=== PATIENT | female | born 1945 | race Caucasian/White ===

== ENCOUNTER 2018-08-12 09:06 | Outpatient (CLI) | payer MEDICARE ==
[2018-08-12] MEDS ORDERED: Iopamidol 370 76% 100 ML VIAL ONE (10:31)
--- NOTE | 2018-08-12 14:35 | CT ---
ABDOMEN AN DPELVIC CT SCAN WITH IV COTNRAST: HISTORY: A 73-year-old female with a history of diverticulitis of large intestine with perforation and abscess with bleeding, bloody stool for 1 month. FINDINGS: Thee is evidence for cardiomegaly. Old granuloma in the left lower lobe. Somewhat mosaic appearance to the lower visualized lungs. Liver attenuation is heterogeneous. Small hiatal hernia. Status po st cholecystectomy with mild dilatation of the common bile duct, but no intrahepatic ductal dilatatio n. The pancreas appears unremarkable. There is evidence for a fatty mass within the 3rd portion of the duodenum measuring 1.6 x 2.4 x 3.6 cm, evidence for a lipoma. No evidence for proximal obstructi on. No renal calculus or obstruction. There is evidence for diverticulosis with some wall thicke abigail and pericolonic fat stranding in the sigmoid portion of the colon, evidence for acute diverticul itis. There is an approximately 3.3 x 4.4 cm diameter somewhat poorly defined air and fluid collecti on adjacent to the sigmoid colon, evidence for a small abscess or confined perforation. No evidence for free intraperitoneal air. No evidence for pelvic or retroperitoneal adenopathy. Small umbilical fat-containing hernia. IMPRESSION: Evidence for acute diverticulitis involving the sigmoid colon with an approximately 3.3 x 4.4 cm diam eter mixed fluid and air collection immediately adjacent to the sigmoid colon, evidence for a small a bscess or confined leak without free intraperitoneal air. This air and fluid collection would not be amenable to percutaneous drainage. Evidence for a lipoma in the 3rd portion of the duodenum. Small hiatal hernia. Small umbilical fat-containing hernia. Cardiomegaly. Other findings as above. POS: [facility]
== END 2018-08-12 09:07 | disposition home or self-care (01) ==
LOC: CT 09:06
PROVIDERS: ATTEND Internal Medicine Gastroenterology
DX: K57.21 Diverticulitis of large intestine with perforation and abscess with bleeding (principal); K92.1 Melena; I48.91 Unspecified atrial fibrillation; I35.0 Nonrheumatic aortic (valve) stenosis; K44.9 Diaphragmatic hernia without obstruction or gangrene; K42.9 Umbilical hernia without obstruction or gangrene; I51.7 Cardiomegaly; D17.5 Benign lipomatous neoplasm of intra-abdominal organs; K83.8 Other specified diseases of biliary tract; K63.89 Other specified diseases of intestine; Z90.49 Acquired absence of other specified parts of digestive tract
CPT/HCPCS: 74177; 82565

== ENCOUNTER 2018-09-14 07:42 | Outpatient (CLI) | payer MEDICARE ==
[2018-09-14] MEDS ORDERED: Iopamidol 300 61% 100 ML VIAL FS ONE (09:00)
--- NOTE | 2018-09-14 12:43 | CT ---
CT ABDOMEN AND PELVIS WITH CONTRAST: HISTORY: Surgery for bleeding abscess. Diverticulitis of the colon. COMPARISON: 08/12/2018 TECHNIQUE: Multiple contiguous axial images were obtained in a CT of the abdomen and pelvis with contrast, and p .o. contrast was administered. Coronal reformats were performed. FINDINGS: The gallbladder has been removed. The liver, kidneys, adrenal glands, spleen, and pancreas are unrem arkable. There is thickening of the wall of the sigmoid colon. Just above the sigmoid colon, there is a high density region measuring 4.2 x 3.2 cm in size. The previously seen air and low density com ponent within the center of this region is no longer present. This is similar in size compared to th e prior examination. There are scattered diverticula in the colon. The small bowel is normal in sukumar iber. No free air or free fluid is seen in the abdomen or pelvis. The patient is status post hyster ectomy. There is a stable lipoma within the duodenum, at the junction of the second and third portion of the duodenum. There is prominence of the common bile duct, which is likely a reservoir effect from prior cholecystectomy. Degenerative changes are seen in the spine. The abdominal wall soft tissues are unremarkable. There is a calcified granuloma in the left lung base. IMPRESSION: 1. High density lesion adjacent to the sigmoid colon most likely represents a hematoma. Previously, this appeared to represent an abscess. There is persistent thickening of the colon in this location , consistent with persistent colitis/inflammation of the colon. 2. Duodenal lipoma. POS: [facility]
== END 2018-09-14 07:43 | disposition home or self-care (01) ==
LOC: SCSCT 07:42
PROVIDERS: ATTEND Specialist
DX: K57.21 Diverticulitis of large intestine with perforation and abscess with bleeding (principal); K63.9 Disease of intestine, unspecified; D17.5 Benign lipomatous neoplasm of intra-abdominal organs
CPT/HCPCS: 74177; 82565

== ENCOUNTER 2018-09-23 11:15 | Outpatient (CLI) | payer MEDICARE ==
[2018-09-23 13:12] LABS: Anion Gap 11 mmol/L (10-20); BUN (Urea Nitrogen) 10 mg/dL (9.8-20.1); Calc. Creatinine Clearance 0 mL/min (70-130); Calcium 9.2 mg/dL (7.8-10.44); Carbon Dioxide 28 mmol/L (23-31); Chloride 103 mmol/L (98-107); Estimated GFR-MDRD 79; Glucose 83 mg/dL (83-110); Potassium 3.2 mmol/L (3.5-5.1); Sodium 139 mmol/L (136-145)
[2018-09-23 13:31] LABS: #Eosinphils 0.2 thou/uL (0.0-0.7); #Monocytes 0.8 thou/uL (0.11-0.59); #Neutrophils 4.7 thou/uL (1.40-6.50); %Basophils 0.7 % (0.0-1.0); %Eosinophils 3.4 % (0.0-10.0); %Lymphocytes 14.1 % (21.0-51.0); %Monocytes 11.2 % (0.0-10.0); %Neutrophils 70.6 % (42.0-75.0); Anisocytosis SLIGHT = 6-15 cells (100X) (0-5/hpf); Hemoglobin 10.7 g/dL (12.0-16.0); Hypochromia SLIGHT = 6-15 cells (100X) (0-5/hpf); MDiff Complete? YES; Mean Corpuscular HGB CONC 28.6 g/dL (32.0-36.0); Mean Corpuscular Hemoglobin 25.6 pg (27.0-31.0); Mean Corpuscular Volume 89.4 fL (78.0-98.0); Mean Platelet Volume 7.8 fL (7.4-10.4); PLT Morphology Comment Appears Adequate; Platelet Count 264 thou/uL (130-400); RBC Distribution Width 15.4 % (11.5-14.5); Red Blood Cell (RBC) Count 4.17 mill/uL (4.20-5.40); White Blood Cell (WBC) Count 6.7 thou/uL (4.8-10.8)
--- NOTE | 2018-09-23 16:48 | EKG ---
Test Reason : Blood Pressure : / mmHG Vent. Rate : 076 BPM Atrial Rate : 079 BPM P-R Int : 000 ms QRS Dur : 098 ms QT Int : 418 ms P-R-T Axes : 000 033 119 degrees QTc Int : 470 ms Atrial fibrillation Incomplete right bundle branch block Nonspecific ST and T wave abnormality Prolonged QT Abnormal ECG No previous ECGs available Confirmed by DR. Gail MEIER ([id number]) on 09/23/2018 4:48:02 PM Referred By: CHELSEY Confirmed By:DR. Gail MEIER
== END 2018-09-23 11:16 | disposition home or self-care (01) ==
LOC: LABBT 11:15
PROVIDERS: ATTEND Specialist
DX: Z01.818 Encounter for other preprocedural examination (principal); K57.21 Diverticulitis of large intestine with perforation and abscess with bleeding
CPT/HCPCS: 80048; 83036; 85025; 93005; 93010

== ENCOUNTER 2018-09-23 12:00 | Inpatient (IN) | payer MEDICARE ==
[2018-09-23 11:25] VITALS: BMI 33.6
[2018-10-04] MEDS ORDERED: Midazolam HCl 2 mg/2 ml Vial ONE (07:34)
[2018-10-04] MEDS ORDERED: Fentanyl 100 MCG/2 ML VIAL ONE ×2 (07:34→09:47)
[2018-10-04] MEDS ORDERED: Dexamethasone 4 mg/ml Vial ONE (07:34)
[2018-10-04] MEDS ORDERED: Ketorolac Tromethamine 30 MG/ML VIAL ONE (07:45)
[2018-10-04] MEDS ORDERED: Lidocaine 1% w/Epinephrine 1:100K 30 ML VIAL ONE (09:31)
[2018-10-04] MEDS ORDERED: cefOXitin 2 GM in Sodium Chloride 0.9% 100 ML IVPB SCH (09:45)
[2018-10-04] MEDS ORDERED: Ketorolac Tromethamine 30 MG/ML VIAL IVP SCH (09:45)
[2018-10-04] MEDS ORDERED: Lidocaine 2% PF 5 ML VIAL ONE (09:55)
[2018-10-04] MEDS ORDERED: Benzonatate 100 MG CAP PO PRN (09:59)
[2018-10-04] MEDS ORDERED: PROVENTIL INHALER 6.7 G (200 INHALATIONS) INH PRN (09:59)
[2018-10-04] MEDS ORDERED: Promethazine HCl 25 MG/ML VIAL SLOW IVP PRN (11:33)
[2018-10-04] MEDS ORDERED: Promethazine HCl 25 MG/ML VIAL IM PRN ×2 (11:33→14:49)
[2018-10-04] MEDS ORDERED: Ondansetron HCl/PF 4 MG/2 ML Vial IVP PRN (11:33)
[2018-10-04] MEDS ORDERED: cefOXitin 2 GM VIAL ONE (12:29)
[2018-10-04] MEDS ORDERED: Ondansetron PF 4 MG/2 ML Vial ONE (13:24)
[2018-10-04] MEDS ORDERED: Bupivacaine HCl 0.5%/Epinephrine 1:200,000/PF 30 ml Vial ONE (14:16)
[2018-10-04] MEDS ORDERED: Esmolol 100 MG/10 ML VIAL ONE (14:46)
[2018-10-04] MEDS ORDERED: Lidocaine 1% PF 5 ML VIAL ONE (14:46)
[2018-10-04] MEDS ORDERED: Metoprolol Tartrate 5 MG/5 ML VIAL ONE (14:46)
[2018-10-04] MEDS ORDERED: Glycopyrrolate 0.2 MG/ML 5 ML SYRINGE ONE (14:46)
[2018-10-04] MEDS ORDERED: PHENYLEPHRINE-NS 100 MCG/ML 10 ML SYRINGE ONE (14:46)
[2018-10-04] MEDS ORDERED: Ondansetron PF 4 MG/2 ML Vial IVP PRN (14:49)
[2018-10-04] MEDS ORDERED: hydrALAZINE 20 MG/ML VIAL SLOW IVP PRN (14:49)
[2018-10-04] MEDS ORDERED: Morphine 4 MG/ML VIAL SLOW IVP PRN (14:49)
[2018-10-04] MEDS ORDERED: Morphine 2 MG/ML SYRINGE SLOW IVP PRN (14:49)
[2018-10-04] MEDS: D5 1/2 NS w/20 mEq KCL 1,000 ML IV SCH ×2 (15:55→21:07)
[2018-10-04] MEDS: Ketorolac Tromethamine 30 MG/ML VIAL IVP SCH ×2 (15:58→21:07)
[2018-10-04] MEDS: Acetaminophen 1,000 MG in Premix Bag 1 BAG IVPB SCH ×2 (15:58→21:07)
[2018-10-04] MEDS: guaiFENesin ER 600 MG TAB PO SCH (20:03)
[2018-10-04] MEDS: Enoxaparin Sodium 40 MG/0.4 ML SYRINGE SC SCH (20:03)
[2018-10-04] MEDS: Simvastatin 20 MG TAB PO SCH (20:03)
[2018-10-04] MEDS: Famotidine/PF 20 mg/2ml Vial SLOW IVP SCH (20:03)
[2018-10-04] MEDS: Famotidine 20 MG TAB PO SCH (20:18)
[2018-10-05] MEDS: Ketorolac Tromethamine 30 MG/ML VIAL IVP SCH ×4 (03:01→21:26)
[2018-10-05] MEDS: D5 1/2 NS w/20 mEq KCL 1,000 ML IV SCH ×2 (03:01→15:45)
[2018-10-05] MEDS: Acetaminophen 1,000 MG in Premix Bag 1 BAG IVPB SCH ×2 (03:01→09:46)
[2018-10-05 05:51] LABS: #Lymphocytes 0.6 thou/uL (1.20-3.40); #Monocytes 0.8 thou/uL (0.11-0.59); #Neutrophils 7.7 thou/uL (1.40-6.50); %Basophils 0.1 % (0.0-1.0); %Eosinophils 0.1 % (0.0-10.0); %Lymphocytes 6.8 % (21.0-51.0); %Monocytes 8.4 % (0.0-10.0); %Neutrophils 84.7 % (42.0-75.0); Hemoglobin 9.5 g/dL (12.0-16.0); Mean Corpuscular HGB CONC 30.4 g/dL (32.0-36.0); Mean Corpuscular Hemoglobin 27.3 pg (27.0-31.0); Mean Corpuscular Volume 89.8 fL (78.0-98.0); Mean Platelet Volume 7.9 fL (7.4-10.4); Platelet Count 183 thou/uL (130-400); RBC Distribution Width 15.6 % (11.5-14.5); Red Blood Cell (RBC) Count 3.47 mill/uL (4.20-5.40); White Blood Cell (WBC) Count 9.1 thou/uL (4.8-10.8)
[2018-10-05 06:02] LABS: Anion Gap 9 mmol/L (10-20); BUN (Urea Nitrogen) 11 mg/dL (9.8-20.1); Calc. Creatinine Clearance 78 mL/min (70-130); Calcium 8.5 mg/dL (7.8-10.44); Carbon Dioxide 25 mmol/L (23-31); Chloride 105 mmol/L (98-107); Estimated GFR-MDRD 65; Glucose 199 mg/dL (83-110); Potassium 4.5 mmol/L (3.5-5.1); Sodium 134 mmol/L (136-145)
--- NOTE | 2018-10-05 08:56 | PRG ---
DATE OF SERVICE: 10/05/2018 SUBJECTIVE: Ms. Frank is postoperative day #1 from laparoscopic sigmoid colectomy/low anterior rese ction. Her rectal transection was right about the level of the peritoneal lining of the pelvis. I d ecided against a diverting ileostomy. She seems to be doing well today. She denies nausea or vomiti ng. She notes appropriate minimal discomfort, but is taking no narcotic medication. She has been to lerating clear liquids. She has been ambulating. PHYSICAL EXAMINATION: VITAL SIGNS: She is afebrile, pulse is 86, blood pressure 129/75. LUNGS: Clear to auscultation. ABDOMEN: Soft. Incisions are healing nicely with minimal tenderness. She has excellent bowel sound s. : Her urine output with her Mchugh catheter was 490 mL overnight. LABORATORY STUDIES: Her CBC reveals a white blood cell count of 9.1 with hemoglobin of 9.5, hematocr it of 31.2. Her basic metabolic panel is essentially normal with a normal BUN and creatinine. Her g lucose level is a little elevated this morning at 199. ASSESSMENT: The patient is doing very well postoperative day #1 from laparoscopic colon resection. I would plan on continuing clear liquids today and advance to full liquids tomorrow. If she still sh ows evidence of appropriate bowel function then she will probably be stable for discharge tomorrow.
[2018-10-05] MEDS: Montelukast Sodium 10 mg Tablet PO SCH (09:46)
[2018-10-05] MEDS: Valsartan 80 MG TAB PO SCH (09:46)
[2018-10-05] MEDS: Spironolactone 25 MG TAB PO SCH (09:46)
[2018-10-05] MEDS: Famotidine 20 MG TAB PO SCH ×2 (09:46→21:26)
[2018-10-05] MEDS: Levothyroxine 150 MCG TAB PO SCH (09:46)
[2018-10-05] MEDS: Potassium Chloride 10 MEQ TAB PO SCH (09:46)
[2018-10-05] MEDS: Famotidine/PF 20 mg/2ml Vial SLOW IVP SCH ×2 (09:48→21:26)
[2018-10-05] MEDS ORDERED: HYDROcodone/Acetaminophen 7.5/325 mg Tablet PO PRN ×2 (14:00)
[2018-10-05] MEDS: Simvastatin 20 MG TAB PO SCH (21:26)
[2018-10-05] MEDS: guaiFENesin ER 600 MG TAB PO SCH (21:26)
[2018-10-05] MEDS: Enoxaparin Sodium 40 MG/0.4 ML SYRINGE SC SCH (21:43)
--- NOTE | 2018-10-05 23:51 | OP ---
DATE OF PROCEDURE: 10/04/2018 PREOPERATIVE DIAGNOSIS: Sigmoid colon diverticulitis. POSTOPERATIVE DIAGNOSIS: Sigmoid colon diverticulitis with a large inflamed mass of the colon within the pelvis. PROCEDURE PERFORMED: Laparoscopic sigmoid colectomy with complete splenic flexure mobilization. SURGEON: Zuhair Swartz M.D. ANESTHESIA: General endotracheal. INDICATIONS: The patient is a 73-year-old white female. She has been having fairly continuous probl ems with diverticulitis over the course of the past few months. She has experienced significant weig ht loss as a result of this and has been on multiple courses of antibiotics. A CT scan has revealed a mass adjacent to the sigmoid colon was initially felt to be an abscess and subsequently felt to pot entially be a hematoma. This has been stable and resolving. She was taken to the operating room at this time for laparoscopic sigmoid colectomy. DESCRIPTION OF PROCEDURE: Informed consent was obtained. The patient was taken to the operating aleida m where general endotracheal anesthesia was obtained with the patient in supine position. Abdomen wa s prepped with ChloraPrep and draped in sterile fashion. Mchugh catheter was placed and she was place d into dorsal lithotomy position. Of note, a digital rectal exam performed, just after anesthesia wa s initiated revealed what appeared to be a palpable mass within the pelvis. This was surprising give n that she has already had a hysterectomy. Local anesthetic was infiltrated using 0.25% Marcaine with epinephrine. A 5 mm supraumbilical incisi on was created through which a Veress needle was passed into the peritoneal cavity and pneumoperitone um established using carbon dioxide up to a pressure of 15 mmHg. A 5 mm trocar port was passed throu gh this same incision, laparoscopic camera was passed through this port. Under direct vision, a 12 m m port was placed in the right lower quadrant. Attention was turned to the pelvis. It was noted to be a large firm mass within the pelvis. This is suspected to be the involved segment of bowel. A si te was selected in the left lower quadrant for the extraction. An 8 cm oblique incision was created and muscle splitting was used to gain access into the abdominal cavity. The Mariano wound retractor w as placed along with the GelPort. A hand was placed intra-abdominal and hand-assisted laparoscopy s continued. The firm mass within the pelvis was recognized to be the severely diseased and inflamed segment of si gmoid colon. This was fixed on the right lateral, left lateral and anteriorly. I began blunt mobili zation, but found this to be inadequate due to the extent in the firmness of the adhesions. I theref ore continued dissection using the LigaSure. I divided the adhesions to the right lateral abdominal wall and eventually the left lateral pelvic wall. Anteriorly, the adhesions were mobilized and I was able to gain access beyond the palpable matted segment of colon down into the pelvis. There was a s egment of rectum distal to this inflamed segment that was appeared to be palpably normal. I then turned my attention to the left colon. I mobilized the left colon along the white line of Joon dt. This mobilization was carried up and around the splenic flexure to achieve full splenic flexure mobilization. The left colon was mobilized bluntly along the fascia of Toldt to achieve medial mobil ization. There was recognized to be thickening and some foreshortening of the sigmoid colon mesentery. There was extensive lymphadenopathy associated with this. I began my dissection initially at about the sacral promontory. The peritoneum of the mesentery was incised and dissection was carried distally along the right lateral aspect of the colon down into the pelvis. I dissected down to the level of the upper rectum. At this level, I was able to dissect a mesenteric window and divided the colon at this level with a single fire of the blue load of the [place] phil stapler. I then mobilized the mesentery proximally to elevate the inflamed mass out of the pelvi s. I attempted to inspect for the ureter on the left, but the extent of the inflammation prohibited adequate dissection. Instead, I made attempts to avoid lateral dissection instead stayed closer to t he colon during the LigaSure dissection. I mobilized up to the level of the severe severely inflamed colon. I then identified a segment of de scending colon that would reach down into the pelvis at the level of the rectal staple line. This wa s marked with a LigaSure. I then further mobilized the second segment of the sigmoid colon mesentery as this was prohibiting adequate reach down into the pelvis and would create tension on the anastomo sis. I was then able to mobilize the bowel out through the Mariano wound retractor and continued the operat ion extracorporeally. Utilizing segregated instrumentation and toweling this area off, I created an enterotomy and then siz ed the colon with the EEA sizers. I selected the 31 mm EEA stapler and obtained the anvil from this. This was passed through the enterotomy and brought out antimesenteric several centimeters proximall y. I then divided the colon so as to exclude the enterotomy in continuity with the site of the resec xavier segment with a final fire of the blue load of the [place] stapler. The segment of the colon was passed off the field. All segregated instruments were passed off the field as well. The gloves were changed. The anvil wa s prepped with Betadine and a pursestring suture of 2-0 Prolene was placed around the base of the anv il. The sigmoid colon was then dropped back down into the abdominal cavity. The segment of the colo n was outside of the involved inflammatory segment. From below, the EEA sizers were passed up to the rectal staple line uneventfully. The 31 mm EEA stap ler was then advanced up to the staple line and under direct visual and palpable guidance, the spike was brought out just anterior to the mid section of the staple line. This spike was connected to the anvil and the 2 segments of the bowel were approximated and anastomosed by firing the stapler. The doughnuts were inspected and found to be of excellent quality. The anastomosis was inspected to ensu re that it was airtight by insufflating while underwater and there was no evidence of air leak. The entire operative site was thoroughly inspected and was found to be hemostatic. There never been any significant blood loss during any portion of the operation. All irrigant from within the abdomen was aspirated. The fascia at the right lower quadrant port was closed with 0 Vicryl suture using a GraNee needle. A ll ports and instruments removed under direct vision. Pneumoperitoneum was carefully evacuated. The closing set was utilized for closing. Gowns and gloves were changed. All laparoscopic instrumen tation was removed and the abdominal wall was cleansed and re-toweled. The fascia at the left lower quadrant extraction site was closed in two layers with a running suture of #1 PDS. Additional local anesthetic was infiltrated. The wound was irrigated with 2 liters of ir rigant. The remainder of the wound was closed in layers with 3-0 and 4-0 Monocryl. Other laparoscop ic port sites were closed with 4-0 Monocryl. Dermabond was placed externally. There were no complic ations with any portion of the operation. She was taken to recovery room in stable condition.
[2018-10-06] MEDS: Ketorolac Tromethamine 30 MG/ML VIAL IVP SCH ×2 (03:36→09:09)
[2018-10-06] MEDS: D5 1/2 NS w/20 mEq KCL 1,000 ML IV SCH ×3 (03:38→10:13)
[2018-10-06] MEDS: Montelukast Sodium 10 mg Tablet PO SCH (09:08)
[2018-10-06] MEDS: Levothyroxine 150 MCG TAB PO SCH (09:08)
[2018-10-06] MEDS: Famotidine 20 MG TAB PO SCH (09:09)
[2018-10-06] MEDS: Valsartan 80 MG TAB PO SCH (09:09)
[2018-10-06] MEDS: Potassium Chloride 10 MEQ TAB PO SCH (09:09)
[2018-10-06] MEDS: Spironolactone 25 MG TAB PO SCH (09:10)
[2018-10-06] MEDS: Famotidine/PF 20 mg/2ml Vial SLOW IVP SCH (09:10)
--- NOTE | 2018-10-06 11:29 | PRG ---
DATE OF SERVICE: 10/06/2018 SUBJECTIVE: Ms. Frank is doing well today. She tolerated full liquid. She is ambulatory with a wa lking program. OBJECTIVE: VITAL SIGNS: She is afebrile. Vital signs are stable. ABDOMEN: Soft. She has active bowel sounds. The wounds look good. No evidence of infection. ASSESSMENT: Postop day #2, sigmoid colectomy. PLAN: She is doing well. She will probably go home this afternoon. We will see how she does from a n ambulatory standpoint. Prescription written for tramadol.
[2018-10-06 12:35] VITALS: BP 116/78; TEMP 97.4
== END 2018-10-06 12:58 | disposition home or self-care (01) | DRG 331 ==
LOC: SURG A 10-04 07:18
PROVIDERS: ADMIT Specialist; ATTEND Specialist
PROC: 0DTN4ZZ Resection of Sigmoid Colon, Percutaneous Endoscopic Approach (ICD-10-PCS; principal; 2018-10-04)
DX: K57.21 Diverticulitis of large intestine with perforation and abscess with bleeding (principal); R19.00 Intra-abdominal and pelvic swelling, mass and lump, unspecified site; M10.9 Gout, unspecified; I11.9 Hypertensive heart disease without heart failure
CPT/HCPCS: 36415; 36416; 80048; 85025; 86850; 86900; 86901; J0131; J0670; J0694; J1100; J1642; J1650; J1885; J2001; J2250; J2405; J3010; J7050; S0028

== ENCOUNTER 2019-01-24 10:33 | Day surgery (SDC) | payer MEDICARE ==
[2019-01-23 12:26] VITALS: BMI 32.5
[2019-01-24] MEDS ORDERED: Ketamine 50 MG/ML (10ML VIAL) ONE (12:30)
[2019-01-24] MEDS ORDERED: Ondansetron HCl/PF 4 MG/2 ML Vial IVP PRN (12:58)
[2019-01-24] MEDS ORDERED: Promethazine HCl 25 MG/ML VIAL SLOW IVP PRN (12:58)
[2019-01-24] MEDS ORDERED: Promethazine HCl 25 MG/ML VIAL IM PRN (12:58)
--- NOTE | 2019-01-24 13:30 | OP ---
DATE OF PROCEDURE: 01/24/2019 PREOPERATIVE DIAGNOSIS: Diverticulitis with abscess. DESCRIPTION OF PROCEDURE: After informed consent was obtained, the patient was placed in a left lateral decubitus position. Anesthesia was administered per the Anesthesia Department. Forward-viewing endoscope was inserted into the rectum after perianal inspection and rectal exam were normal this passed to the cecum with ease. The cecum, ileocecal valve, and appendiceal orifice were normal. The prep was excellent. The ascending, transverse, descending, sigmoid, and rectum were normal except for diffuse diverticulosis coli. An end-to-side anastomosis was noted in the sigmoid colon with a healthy appearance. Retroflexion in the rectum was normal. ASSESSMENT: 1. End-to-side colonic anastomosis, healthy in appearance. 2. Diffuse diverticulosis coli. 3. Otherwise, normal colonoscopy. RECOMMENDATIONS: 1. Daily fiber supplementation. 2. No need for repeat colonoscopy in the future. Job ID: [id number]
[2019-01-24] MEDS ORDERED: PROPOFOL 200 MG/20 ML VIAL ONE (13:48)
== END 2019-01-24 14:20 | disposition home or self-care (01) ==
LOC: SDC 10:33
PROVIDERS: ATTEND Internal Medicine Gastroenterology
PROC: 0DJD8ZZ Inspection of Lower Intestinal Tract, Via Natural or Artificial Opening Endoscopic (ICD-10-PCS; principal; 2019-01-24)
DX: K57.30 Diverticulosis of large intestine without perforation or abscess without bleeding (principal); K63.0 Abscess of intestine; I35.0 Nonrheumatic aortic (valve) stenosis; I48.91 Unspecified atrial fibrillation; I10 Essential (primary) hypertension; D64.9 Anemia, unspecified; J45.909 Unspecified asthma, uncomplicated; K21.9 Gastro-esophageal reflux disease without esophagitis; E78.00 Pure hypercholesterolemia, unspecified; G47.30 Sleep apnea, unspecified; Z86.010 Personal history of colon polyps; Z90.710 Acquired absence of both cervix and uterus; Z88.5 Allergy status to narcotic agent; Z79.01 Long term (current) use of anticoagulants; Z79.51 Long term (current) use of inhaled steroids; Z79.899 Other long term (current) drug therapy; Z98.890 Other specified postprocedural states
CPT/HCPCS: J2704

== ENCOUNTER 2019-10-26 11:03 | Outpatient (CLI) | payer MEDICARE ==
--- NOTE | 2019-10-26 11:25 | RAD ---
XR Chest Pa Lat STANDARD HISTORY: Cough, atrial fibrillation. Unspecified systolic heart failure COMPARISON: None FINDINGS: There are changes of median sternotomy and valvular replacement. The heart size is mildly e nlarged. The aorta is tortuous. There is mild prominence of the pulmonary vascularity. The lungs are well expanded without lobar consolidation, pneumothoraces or pleural effusions. There are mild de generative changes in the spine.
== END 2019-10-26 11:04 | disposition home or self-care (01) ==
LOC: BICRAD 11:03
PROVIDERS: ATTEND Internal Medicine Gastroenterology
DX: I50.20 Unspecified systolic (congestive) heart failure (principal); R19.7 Diarrhea, unspecified; R00.0 Tachycardia, unspecified; R05 Cough; L89.321 Pressure ulcer of left buttock, stage 1; I48.91 Unspecified atrial fibrillation; Z79.01 Long term (current) use of anticoagulants
CPT/HCPCS: 71046

== ENCOUNTER 2019-10-26 13:26 | Inpatient (IN) | payer MEDICARE ==
[~2019-10-26 13:26] MED LIST: Iopamidol-370 76% 500 ML 1 ML ONE; Mometasone/Formoterol 120 PUFF INHALER INH PRN
[2019-10-26 14:22] LABS: #Basophils 0.2 thou/uL (0.0-0.2); #Eosinphils 0.1 thou/uL (0.0-0.7); #Lymphocytes 2.1 thou/uL (1.20-3.40); #Monocytes 0.8 thou/uL (0.11-0.59); #Neutrophils 6.8 thou/uL (1.40-6.50); %Basophils 2.2 % (0.0-1.0); %Eosinophils 0.7 % (0.0-10.0); %Lymphocytes 20.7 % (21.0-51.0); %Monocytes 8.1 % (0.0-10.0); %Neutrophils 68.4 % (42.0-75.0); Hemoglobin 5.9 g/dL (12.0-16.0); Mean Corpuscular HGB CONC 33.4 g/dL (32.0-36.0); Mean Corpuscular Hemoglobin 33.5 pg (27.0-31.0); Mean Platelet Volume 7.3 fL (7.4-10.4); Platelet Count 210 thou/uL (130-400); RBC Distribution Width 14.3 % (11.5-14.5); Red Blood Cell (RBC) Count 1.77 mill/uL (4.20-5.40)
[2019-10-26 14:50] LABS: ALT (SGPT) 11 U/L (8-55); AST (SGOT) 34 U/L (5-34); Albumin 2.9 g/dL (3.4-4.8); Alkaline Phosphatase 105 U/L (40-110); Anion Gap 14 mmol/L (10-20); BUN (Urea Nitrogen) 43 mg/dL (9.8-20.1); Bilirubin, Total 1.4 mg/dL (0.2-1.2); Calc. Creatinine Clearance 0 mL/min (70-130); Calcium 8.6 mg/dL (7.8-10.44); Carbon Dioxide 22 mmol/L (23-31); Chloride 103 mmol/L (98-107); Estimated GFR-MDRD 53; Globulin 1.9 g/dL (2.4-3.5); Glucose 129 mg/dL (83-110); Lipase 66 U/L (8-78); Potassium 3.8 mmol/L (3.5-5.1); Protein, Total 4.8 g/dL (6.0-8.3); Sodium 135 mmol/L (136-145)
[2019-10-26] MEDS ORDERED: cefTRIAXone\\ROCEPHIN 1 GM VIAL ONE (16:00)
[2019-10-26] MEDS ORDERED: Pantoprazole 40 MG VIAL ONE (16:02)
--- NOTE | 2019-10-26 16:49 | CT ---
CT abdomen and pelvis with IV contrast HISTORY: Abdominal pain. Anemia. GI bleed. COMPARISON: 09/14/2018. FINDINGS: Mild atelectasis at the lung bases. Gallbladder is surgically absent. Associated distention of the biliary system. Solid organs are intact. Nonobstructing lipoma within the second portion the duodenum is unchanged in appearance. Calcification throughout the arterial structures. Prominent degenerative changes lower lumbar spine. Postoperative changes of the sigmoid colon and upper rectum are now evident where a long segment of i nflammation was present on the previous study. No extraluminal gas or free fluid are apparent. No residual inflammation. IMPRESSION: Postoperative changes of the rectosigmoid colon without evidence of complication or recur rent inflammation. Mild atelectasis at the lung bases. Chronic-type findings are stable.
--- NOTE | 2019-10-26 18:48 | RAD ---
EXAM: XR Chest 1 View Portable PROVIDED CLINICAL HISTORY: Anemia COMPARISON: None FINDINGS: Cardiac silhouette appears enlarged. Median sternotomy changes are seen. 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 No focal consolidation, pleural fluid or pneumothorax apparent. Left subclavian central line noted with terminal aspects overlying the expected location of cavoatrial junction. IMPRESSION: Cardiomegaly without evidence for an acute cardiopulmonary process.
--- NOTE | 2019-10-26 19:13 | PDOC.FPRHP ---
- History of Present Illness Chief Complaint: blood per rectum, fatigue History of Present Illness: Patient is a 74F with PMHx of HTN, hypothyroidism, HLD, asthma, and afib on warfarin that presents with blood per rectum and fatigue. Per patient, she started to feel fatigued on Wednesday and shaky today. She was seen at Dr. Mccabe's office today and her hgb was found to be 6.3, so she was sent to the hospital for a blood transfusion. Per patient she started to notice "muddly-like loose stools" Cha night and yesterday morning. She denies bright red blood per rectum. Denies NSAID use, reports she only uses tylenol because she's on warfarin. Denies cp, sob, or abdominal pain at this time. Per patient she last had rectal bleeding september 2018, and at that time she was found to have diverticulitis and an abscess that resulted in partial colon resection. Inside Finisher: Dr. Patel GI: Dr. Mccabe ED Course: 1g rocephin, 80mg protonix, 2u pRBC - Allergies/Adverse Reactions Allergies Allergy/AdvReac Type Severity Reaction Status Date / Time meperidine [From Demerol] Allergy Mild Emesis Verified 01/23/19 12:26 amoxicillin [From Augmentin] Allergy Verified 10/26/19 21:57 clavulanic acid Allergy Verified 10/26/19 21:57 [From Augmentin] - Home Medications Medication Instructions Recorded Confirmed Type Acetaminophen [Tylenol Extra 1 tab PO PRN PRN 09/23/18 10/26/19 History Strength] Albuterol Sulfate [Proair HFA] 1 puff PO PRN PRN 09/23/18 10/26/19 History Lactobacillus Acidophilus 1 capsule PO HS 09/23/18 10/26/19 History [Probiotic] Levothyroxine Sodium [Synthroid] 150 mcg PO DAILY 09/23/18 10/26/19 History Meclizine HCl [Antivert] 25 mg PO PRN PRN 09/23/18 10/26/19 History Metoprolol Succinate [Toprol Xl] 75 mg PO DAILY 09/23/18 10/26/19 History Montelukast Sodium [Singulair] 10 mg PO DAILY 09/23/18 10/26/19 History Potassium Chloride 10 meq PO DAILY 09/23/18 10/26/19 History Simvastatin [Zocor] 10 mg PO HS 09/23/18 10/26/19 History guaiFENesin ER [Mucinex] 600 mg PO HS 09/23/18 10/26/19 History Fluticasone Propionate [Flonase 2 inh EA NARE DAILY 10/05/18 10/26/19 History Allergy Relief] Furosemide 60 mg PO DAILY 10/05/18 10/26/19 History Losartan Potassium 50 mg PO DAILY 10/05/18 10/26/19 History Warfarin Sodium 5.5 mg PO DAILY 01/23/19 10/26/19 History Benzonatate [Tessalon] 100 mg PO TID PRN 10/26/19 10/26/19 History Cholecalciferol (Vitamin D3) 1,000 unit PO DAILY 10/26/19 10/26/19 History [Vitamin D3] Ferrous Sulfate 325 mg PO DAILY 10/26/19 10/26/19 History Fish Oil 1,000 mg PO DAILY 10/26/19 10/26/19 History Fluticasone/Vilanterol [Breo 1 each IH PRN PRN 10/26/19 10/26/19 History Ellipta 200-25 Mcg INH] Loratadine [Claritin] 10 mg PO DAILY 10/26/19 10/26/19 History Ranitidine HCl 150 mg PO BID 10/26/19 10/26/19 History - History PMHx:HTN, hypothyroidism, HLD, asthma, and afib on warfarin PSHx: hysterectomy, thyroidectomy, cholecystectomy, partial colon resection s/p diverticulitis, tonsillectomy, adenoidectomy, open heart surgery 2008 for mitral valve repair FHx: no family hx of colon cancer Social: non-smoker, no etoh use, no drug use - Review of Systems General: denies: fever/chills, weight/appetite/sleep changes Eyes: denies: eye pain, vision changes ENT: denies: nasal congestion, rhinorrhea Respiratory: denies: cough, congestion, shortness of breath Cardiovascular: denies: chest pain, palpitation, edema Gastrointestinal: reports: diarrhea, GI bleeding. denies: nausea, vomiting Genitourinary: denies: polyuria, discharge Skin: denies: jaundice, itching Musculoskeletal: denies: pain, stiffness Neurological: reports: weakness. denies: syncope, seizure Psychological: denies: anxiety, depression - Vital signs BP: [86/59] HR: [97] RR: [22] Tmax: [98.4F] Pox: [98]% on [RA] Wt: [73.7kg] - Physical Exam Constitutional: NAD, awake, alert and oriented, well developed HEENT: EOMI, MMM Neck: supple, FROM Chest: no-tender to palpation, no lesions Heart: other (afib, systolic murmur) Lungs: CTAB, no respiratory distress Abdomen: soft, non-tender, bowel sounds present Musculoskeletal: normal structure, ROM grossly normal Neurological: no focal deficit, normal sensation Skin: good turgor, other (appears jaundiced) Heme/Lymphatic: other (some purpura upper extremities) Psychiatric: normal mood and affect, good judgment and insight FMR H&P: Results - Labs Result Diagrams: 10/26/19 23:59 10/26/19 14:10 Lab results: WBC 10.0 thou/uL (4.8-10.8) 10/26/19 14:10 Hgb 5.9 g/dL (12.0-16.0) L* 10/26/19 14:10 Hct 17.7 % (36.0-47.0) L 10/26/19 14:10 MCV 100.0 fL (78.0-98.0) H 10/26/19 14:10 Plt Count 210 thou/uL (130-400) 10/26/19 14:10 Neutrophils % 68.4 % (42.0-75.0) 10/26/19 14:10 Sodium 135 mmol/L (136-145) L 10/26/19 14:10 Potassium 3.8 mmol/L (3.5-5.1) 10/26/19 14:10 Chloride 103 mmol/L (98-107) 10/26/19 14:10 Carbon Dioxide 22 mmol/L (23-31) L 10/26/19 14:10 BUN 43 mg/dL (9.8-20.1) H 10/26/19 14:10 Creatinine 1.01 mg/dL (0.6-1.1) 10/26/19 14:10 Glucose 129 mg/dL (83-110) H 10/26/19 14:10 Calcium 8.6 mg/dL (7.8-10.44) 10/26/19 14:10 Total Bilirubin 1.4 mg/dL (0.2-1.2) H 10/26/19 14:10 AST 34 U/L (5-34) 10/26/19 14:10 ALT 11 U/L (8-55) 10/26/19 14:10 Alkaline Phosphatase 105 U/L (40-110) 10/26/19 14:10 Serum Total Protein 4.8 g/dL (6.0-8.3) L 10/26/19 14:10 Albumin 2.9 g/dL (3.4-4.8) L 10/26/19 14:10 Lipase 66 U/L (8-78) 10/26/19 14:10 - EKG Interpretation EKG: afib - Radiology Interpretation CT scan - abdomen Status: report reviewed by me (Post-op rectosigmoid conol, mild atelectasis lung bases) FMR H&P: A/P - Problem List (1) HTN (hypertension) Current Visit: Yes Status: Chronic Code(s): I10 - ESSENTIAL (PRIMARY) HYPERTENSION (2) Hypothyroidism Current Visit: Yes Status: Chronic Code(s): E03.9 - HYPOTHYROIDISM, UNSPECIFIED (3) HLD (hyperlipidemia) Current Visit: Yes Status: Chronic Code(s): E78.5 - HYPERLIPIDEMIA, UNSPECIFIED (4) Asthma Current Visit: Yes Status: Chronic Code(s): J45.909 - UNSPECIFIED ASTHMA, UNCOMPLICATED (5) Afib Current Visit: Yes Status: Chronic Code(s): I48.91 - UNSPECIFIED ATRIAL FIBRILLATION (6) GI bleed Current Visit: Yes Status: Acute Code(s): K92.2 - GASTROINTESTINAL HEMORRHAGE, UNSPECIFIED (7) Acute blood loss anemia Current Visit: Yes Status: Acute Code(s): D62 - ACUTE POSTHEMORRHAGIC ANEMIA - Plan Patient is a 74F with a PMHx of HTN, hypothyroidism, HLD, asthma, and afib on warfarin admitted for GI bleed. #Acute blood loss anemia -upper vs lower GI bleed -melena per rectum for last few days, last melanotic stool earlier this am with no bleeding since -fatigue over last week, jaundiced on appearance -hgb 5.9 in ED, transfused 2 pRBC -will recheck hgb 4-hours post-transfusion to assess for need of more blood products -patient had L subclavian central line placed in ED for possible use of pressors -BP stable in 80s-90s/50s, will continue to monitor and consider starting pressures to achieve MAP of 65 -GI consult in am unless patient's status declines and emergent scope needed -empiric rocephin initiated in ED, continue -hold patient's home warfarin -hold patient's home BP meds -ICU admission for frequent monitoring #HTN -hold home BP meds for now #Hypothyroidism -continue home meds #HLD -hold home meds #Asthma -continue home meds #Afib -current in afib, will hold patient's warfarin for now due to GI bleed DVT ppx: SCDs due to bleeding risk Diet: NPO for anticipated scope in am Dispo: ICU admission for frequent monitoring of vitals for GI bleed; continued monitoring of hemoglobin and delivery of blood products as needed Code: Full PCP: CC: Lionel FMR H&P: Upper Level - Plan Date/Time: 10/26/191911 I, Cisco Young MD, have evaluated this patient and agree with findings/ plan as outlined by logistics intern resident. Pertinent changes/additions are listed here. 1. Acute blood loss anemia - Upper GI vs Lower GI bleed - Consult GI - NPO for preparation of endoscopy tomorrow - s/p 2u pRBC in ED - Recheck Hgb tonight - Empiric Rocephin initiated 2. Hypotension - Likely secondary to above - s/p central line 10/26 in ED - Consider vasopressor support if needed All other chronic conditions reviewed and medication to be restarted as appropriate. PCP: _ CODE STATUS: FULL CODE Disposition: Guarded, will admit to ICU for further evaluation and treatment. Patient was seen and evaluated with Dr. Miguel Angel Murcia who is in agreement with plan. Addendum - Attending - Attending Attestation Date/Time: 10/27/19311 I personally evaluated the patient and discussed the management with the team on day of admission. I agree with the History, Examination, Assessment and Plan documented above with any addition or exceptions noted below. GI bleed - resuscitate, recheck h/h and transfuse as necessary. Vit K, no sign of persistent bleeding.
[2019-10-26 19:33] LABS: INR-International Normal Ratio 2.7; PTT 36.8 SEC (22.9-36.1); Prothrombin Time 28.4 SEC (12.0-14.7)
[2019-10-26 19:50] LABS: Iron 39 ug/dL (50-170); Iron Binding Capacity, Total 238 mcg/dL (265-497)
[2019-10-26] MEDS ORDERED: Acetaminophen 325 MG TAB PO PRN (21:23)
[2019-10-26] MEDS ORDERED: Sodium Chloride 0.9% 1,000 ML IV SCH (21:23)
[2019-10-26] MEDS ORDERED: Ondansetron PF 4 MG/2 ML Vial IVP PRN (21:23)
[2019-10-26] MEDS ORDERED: Ondansetron ODT 4 MG TAB SL PRN (21:23)
[2019-10-26] MEDS ORDERED: CCU Electrolyte Replacement 1 EACH IVPB SCH (21:34)
[2019-10-26] MEDS ORDERED: Potassium Chloride 40 MEQ in Premix Bag 1 BAG IVPB PRN (21:40)
[2019-10-26] MEDS ORDERED: Potassium Phosphate 9 MMOL in Sodium Chloride 0.9% 100 ML IVPB PRN (21:40)
[2019-10-26] MEDS ORDERED: CCU ELECTROLYTE REPLACEMENT PROTOCOL FS PRN (21:40)
[2019-10-26] MEDS ORDERED: Magnesium 2 GM/50 ML 2 GM in Premix Bag 1 BAG IVPB PRN (21:40)
[2019-10-26] MEDS ORDERED: Magnesium Oxide 400 MG TAB PO PRN ×2 (21:40)
[2019-10-26] MEDS ORDERED: Potassium Chloride 20 MEQ TAB PO PRN (21:40)
[2019-10-26] MEDS ORDERED: Potassium Chloride 40 MEQ in Sodium Chloride 0.9% 250 ML 250 ML IVPB PRN (21:40)
[2019-10-26] MEDS ORDERED: Potassium Phosphate 15 MMOL in Sodium Chloride 0.9% 250 ML 250 ML IV PRN (21:40)
[2019-10-26] MEDS ORDERED: PHOS-NAK 1 PKT PACK PO PRN ×2 (21:40)
[2019-10-26] MEDS ORDERED: Potassium Phosphate 12 MMOL in Sodium Chloride 0.9% 250 ML 250 ML IV PRN (21:40)
[2019-10-26] MEDS: Sodium Chloride 0.9% 1,000 ML IV SCH (21:49)
[2019-10-26 22:24] VITALS: BMI 29.7
[2019-10-26] MEDS ORDERED: Norepinephrine 8 MG/0.9% NS 250 ML IVPB SCH (23:39)
[2019-10-26] MEDS ORDERED: Acetaminophen 500 MG TAB PO PRN (23:42)
[2019-10-26] MEDS ORDERED: PROVENTIL INHALER 6.7 G (200 INHALATIONS) INH PRN (23:42)
[2019-10-26] MEDS ORDERED: Phytonadione 10 MG in Sodium Chloride 0.9% 50 ML IVPB SCH (23:45)
[2019-10-27 00:10] LABS: Hemoglobin 7.1 g/dL (12.0-16.0); Mean Corpuscular HGB CONC 33.8 g/dL (32.0-36.0); Mean Corpuscular Hemoglobin 31.4 pg (27.0-31.0); Mean Platelet Volume 7.5 fL (7.4-10.4); Platelet Count 174 thou/uL (130-400); RBC Distribution Width 18.2 % (11.5-14.5); Red Blood Cell (RBC) Count 2.27 mill/uL (4.20-5.40); White Blood Cell (WBC) Count 8.3 thou/uL (4.8-10.8)
[2019-10-27 05:12] LABS: Band 1 % (5-11); Eosinophils 2 % (0-10); Hemoglobin 8.1 g/dL (12.0-16.0); Lymphocytes 17 % (21-51); MDiff Complete? YES; Mean Corpuscular HGB CONC 33.9 g/dL (32.0-36.0); Mean Corpuscular Hemoglobin 30.8 pg (27.0-31.0); Mean Corpuscular Volume 90.9 fL (78.0-98.0); Monocytes 8 % (0-10); Neutrophil 72 % (42-75); Platelet Count 186 thou/uL (130-400); Platelet Morphology Comment Appears Adequate; RBC Distribution Width 17.2 % (11.5-14.5); Red Blood Cell (RBC) Count 2.62 mill/uL (4.20-5.40); White Blood Cell (WBC) Count 8.9 thou/uL (4.8-10.8)
[2019-10-27 05:36] LABS: Anion Gap 9 mmol/L (10-20); BUN (Urea Nitrogen) 32 mg/dL (9.8-20.1); Calc. Creatinine Clearance 63 mL/min (70-130); Calcium 8.4 mg/dL (7.8-10.44); Carbon Dioxide 26 mmol/L (23-31); Chloride 106 mmol/L (98-107); Estimated GFR-MDRD 62; Glucose 106 mg/dL (83-110); Potassium 3.4 mmol/L (3.5-5.1); Sodium 138 mmol/L (136-145)
[2019-10-27] MEDS: Levothyroxine 150 MCG TAB PO SCH (05:58)
--- NOTE | 2019-10-27 06:52 | PDOC.FM ---
- Subjective Subjective: Overnight was able to wean off levophed however MAP 62 this morning. She appears to be volume depleted despite some b/l LE edema. Reports diarrhea is improving and her last BM was last night. Fatigue and weakness have improved with pRBCs. Denies abdominal pain, chest pain, shortness of breath. Shigella toxin positive could explain the blood in her stool. - Objective MAR Reviewed: Yes Vital Signs & Weight: Vital Signs (12 hours) Temp Pulse Resp BP Pulse Ox 10/27/19 04:00 98.2 F 10/27/19 03:19 98.2 F 108 H 23 H 97/55 L 94 L 10/27/19 01:00 98.3 F 10/27/19 00:58 98.3 F 92 20 91/55 L 100 10/27/19 00:42 98.2 F 96 23 H 93/58 L 95 10/27/19 00:00 98.2 F 10/26/19 21:15 98.3 F 100 Weight Weight 73.7 kg Most Recent Monitor Data Heart Rate from ECG 91 NIBP 92/54 NIBP BP-Mean 66 Respiration from ECG 20 SpO2 98 I&O: 10/25/19 10/26/19 10/27/19 06:59 06:59 06:59 Intake Total 1088.1 Output Total 750 Balance 338.1 Result Diagrams: 10/27/19 07:54 10/27/19 04:45 Phys Exam - Physical Examination Constitutional: NAD HEENT: moist MMs Neck: supple Respiratory: no wheezing, clear to auscultation bilateral Cardiovascular: RRR holosystolic murmur Gastrointestinal: soft, non-tender, positive bowel sounds Musculoskeletal: edema present Neurological: moves all 4 limbs Psychiatric: normal affect, A&O x 3 Skin: normal turgor Dx/Plan - Plan Plan: Patient is a 74F with a PMHx of HTN, hypothyroidism, HLD, asthma, and afib on warfarin admitted for GI bleed. Acute blood loss anemia - s/p 3U pRBCs, Hgb now 8.1 - Currently on Levophed for BP support - Currently NPO. GI consulted - Hold patient's home warfarin, received Vit K overnight. - Holding home BP meds E coli Shiga toxin diarrhea - Likely cause of blood in stool - Positive on stool culture - Will d/c Ceftriaxone and treat symptoms including giving IVF HTN - Holding home meds for hypotension Hypothyroidism - Continue home meds HLD - Hold home meds Asthma - Continue home meds Afib - In afib, holding warfarin due to GI bleed - INR this AM 1.7 DVT ppx: SCDs Code Status: Full PCP: CC: Lionel Addendum - Attending - Attending Attestation Date/Time: 10/27/19 1113 I personally evaluated the patient and discussed the management with Dr. Ochoa. I agree with the History, Examination, Assessment and Plan documented above with any addition or exceptions noted below. Patient here with acute GI bleed and symptomatic anemia. She has now tested positive for Shiga toxin producing E. coli. However, she has no evidence of colits on CT or on exam. We have held further antibiotics in the situation of this infection as antibiotics are contraindicated in this position. She was initially receiving them due to GI bleed in setting of concern for cirrhosis. However, there is no evidence to support liver disease as an ongoing process. She has improved MAPs with serial fluid boluses and is currently off Levophed. Continue to monitor. Continue to trend H/H. Repeat coags this morning, s/p vitamin K so anticipate a labile INR over the coming days. Awaiting GI consult as they sent her over from clinic.
[2019-10-27 08:02] LABS: Hemoglobin 7.9 g/dL (12.0-16.0)
[2019-10-27 08:12] LABS: INR-International Normal Ratio 1.7; PTT 33.1 SEC (22.9-36.1); Prothrombin Time 20.1 SEC (12.0-14.7)
[2019-10-27] MEDS: Sodium Chloride 0.9% 1,000 ML IV SCH (08:33)
[2019-10-27] MEDS: Pantoprazole 40 MG VIAL IVP SCH ×2 (08:35→20:59)
[2019-10-27] MEDS: Montelukast Sodium 10 mg Tablet PO SCH (08:35)
[2019-10-27] MEDS: Ferrous Sulfate 325 MG TAB PO SCH (08:35)
--- NOTE | 2019-10-27 11:09 | CON ---
DATE OF CONSULTATION: HISTORY OF PRESENT ILLNESS: Kenzie Frank is a pleasant 74-year-old female from [place], [place] who said she was recently hospitalized in [facility], was diagnosed flu, respiratory failure CHF. Now, she developed lower GI bleed. She was here recently in October 2018 when she underwent a sigmoid colectomy for diverticular disease. She apparently has done well. She is complicated by C difficile colitis on two different occasions. This morning, she has been off the Levophed, blood pressure stabilized. PAST MEDICAL HISTORY: Apparently, asthma, CHF, high cholesterol, hypertension, hypothyroidism, diverticular disease. PAST SURGICAL HISTORY: Cholecystectomy, sigmoid colectomy, tonsil, adenoid, hysterectomy, multiple endoscopies. HOME MEDICATIONS: Includes 1. Guaifenesin 600. 2. Coumadin5_. 3. Zocor 10. 4. Ranitidine 150. 5. Potassium. 6. Singulair 10. 7. Toprol-XL 75. 8. Meclizine p.r.n. 9. Losartan 50. 10. Claritin. 11. Synthroid 150. 12. Lasix 60. 13. Breo 225 once a day. She has a nebulizer machine. She has a CPAP machine, albuterol inhaler. ALLERGIES: DEMEROL, AUGMENTIN. SOCIAL HISTORY: No alcohol and tobacco abuse. REVIEW OF SYSTEMS: Ten-point negative. PHYSICAL EXAMINATION: GENERAL: She is in no distress. VITAL SIGNS: Blood pressure 110/80, saturations 98% on room air, respiratory rate 18, pulse 80. CHEST: No wheezing, crackles. CARDIAC: Normal S1, S2, no gallops. ABDOMEN: No masses. LABORATORY DATA: H and H are 7 and 23, platelet count 186. INR was 2.7, is 1.7 now. Electrolytes are normal. Chest x-ray did not show any acute infiltrates. She had a CT abdomen done, which showed no acute findings. IMPRESSION: No gastrointestinal bleed. History of diverticular disease, history of atrial fibrillation, history of asthma, history of sleep apnea, history of hypothyroidism. Pulmonary sims, she appears to be relatively stable. I agree with Florinda. Supportive care, PT. Await input from GI. She had a stool culture positive for Shiga, unclear what this is, though at this stage are not treated. Primary will follow in the ICU. Consultation note, 70 minutes, 50% direct patient care. Job ID: [id number] MTDD
[2019-10-27] MEDS ORDERED: cefTRIAXone\\ROCEPHIN 1 GM in Sodium Chloride 0.9% 100 ML IVPB SCH (16:00)
[2019-10-27] MEDS: Diabetic Tussin 200 MG/10 ML UDCUP PO PRN (20:59)
[2019-10-27] MEDS: Sodium Chloride 0.9% (PF) 10 ML VIAL FS PRN (20:59)
--- NOTE | 2019-10-27 21:12 | CON ---
DATE OF CONSULTATION: 10/27/2019 REQUESTING PHYSICIAN: Dr. Ray. REASON FOR CONSULTATION: Melena and anemia. HISTORY OF PRESENT ILLNESS: Kenzie Anaya is a very pleasant 74-year-old woman, who was previously seen by my GI colleague, Dr. Javier Greene. Back in October 2018, she had complicated sigmoid diverticular disease and ended up undergoing sigmoid colectomy. She had a followup colonoscopy in January 2019 showing only diverticulosis with a normal healthy-appearing sigmoid anastomosis and otherwise normal examination. Later this year, she had a couple of episodes of C difficile colitis, which were treated with vancomycin, with complete symptom resolution after the second course. More recently, she was hospitalized elsewhere with upper respiratory symptoms, treated for pneumonia and the flu with antibiotics. She states she was doing well for several days, but about 4 days ago, she started having a change in bowel habits with her stools becoming quite dark brown or even black appearing and more frequent. This happened for 3 days in a row, and she started feeling progressively weak and fatigued. She presented to our clinic and was seen by our physician assistants yesterday, had labs drawn and was found to have significant new anemia with hemoglobin of 6.2. Previous hemoglobin had been 13 as recently as April. She was advised to present to the emergency department, which she did and was subsequently admitted. Admission hemoglobin here was 5.9. Note, she had an elevated BUN to creatinine ratio of 43 to 1.01. She also had some hypotension throughout the night and was briefly on pressors. She received 3 units RBC transfusion and today hemoglobin is up from 5.9 to 7.9, BUN is declined to 32. She is hemodynamically stable today. She had one further bowel movement, which was dark appearing earlier today with just a bit of bright red on the toilet paper. Through all of this, she has not had any abdominal pain or nausea or vomiting. She is feeling much better after blood transfusion. She cannot recall ever having undergone upper endoscopy. She has no known history of peptic ulcer disease. Stool studies are negative for C difficile, but are positive for E coli producing Shiga toxin. REVIEW OF SYSTEMS: Full review of systems including constitutional, head, eyes, ears, nose, throat, GI, , cardiovascular, respiratory, musculoskeletal, neurologic systems is negative except as noted in the HPI. PAST MEDICAL HISTORY: Complicated diverticular disease status post sigmoid resection in October 2018; hypertension; hypothyroidism; hyperlipidemia; asthma; atrial fibrillation, on warfarin; hysterectomy; thyroidectomy; cholecystectomy; tonsillectomy; mitral valve repair in 2008. FAMILY HISTORY: Negative for colon cancer. SOCIAL HISTORY: No smoking, alcohol or drug use. ALLERGIES: DEMEROL, AMOXICILLIN, AND AUGMENTIN. HOME MEDICATIONS: 1. Tylenol p.r.n. 2. Albuterol p.r.n. 3. Probiotic. 4. Levothyroxine. 5. Meclizine. 6. Metoprolol. 7. Singulair. 8. Potassium chloride. 9. Zocor. 10. Mucinex. 11. Flonase. 12. Furosemide 60 mg daily. 13. Losartan. 14. Warfarin daily. 15. Tessalon Perles p.r.n. 16. Vitamin D3 1000 units daily. 17. Ferrous sulfate 325 mg daily. 18. Fish oil. 19. Breo Ellipta. 20. Claritin. 21. Ranitidine 150 mg p.o. b.i.d. INPATIENT MEDICATIONS: 1. Ferrous sulfate 325 mg daily. 2. Synthroid. 3. Dulera inhaler. 4. Singulair. 5. Protonix 40 mg IV q.12 hours. 6. Potassium chloride. PHYSICAL EXAMINATION: VITAL SIGNS: Temperature 98.3, pulse 88, blood pressure 102/65, and 99% oxygen saturation on room air. GENERAL: Pale 74-year-old woman, sitting up in bed comfortably, in no distress. SKIN: She is pale. No jaundice. No rashes are palpable. EYES: No scleral icterus. Extraocular movements intact. ENT: Mucous membranes moist. No oral lesions. LYMPH: No submandibular or supraclavicular lymphadenopathy. THYROID: Nontender to palpation. HEART: Regular rate and rhythm. LUNGS: Clear to auscultation bilaterally. ABDOMEN: Bowel sounds are present. Soft. Nontender to deep palpation throughout the abdomen. No guarding or rebound tenderness. EXTREMITIES: No peripheral edema. VESSELS: Radial pulses 2+ bilaterally. NEUROLOGIC: Cranial nerves 2 through 12 intact bilaterally. No focal deficits. LABORATORY STUDIES: Admission hemoglobin was 5.9, came up to 7.9 with 3 units RBC transfusion yesterday; hematocrit is 23.3; WBC 8.9; platelets 186; MCV on admission was 100.0. INR on admission was 2.7, now down to 1.7. Sodium 138, potassium 3.4, BUN 32, creatinine 0.89, and glucose 106. Ferritin 60.6, iron 39, and TIBC 238. Total bilirubin 1.4, alkaline phosphatase 105, AST 34, and ALT 11. Troponin 0.026. Albumin 2.9. Lipase 66. ASSESSMENT/PLAN: 1. Acute blood loss anemia. 2. Melena. 3. Shiga toxin producing Escherichia coli infection, per positive stool studies on admission. The patient's symptomatic presentation seems more consistent with upper rather than lower gastrointestinal source, despite the positive stool studies for E coli and her recent treatments for C difficile and complicated diverticulitis. She has elevated BUN to creatinine ratio, no other colitic symptoms such as diarrhea or abdominal pain. So, I would favor more of the possibility of upper GI bleeding. Continue the Protonix q.12 hours as you are doing, continue to trend H and H, and offer supportive care. We will plan for diagnostic upper endoscopy tomorrow. Given that she had satisfactory colonoscopy just this past January and the positive stool for E coli, we will not plan on performing any colonoscopy. Thank you for the consultation. Please call back anytime with questions or concerns. Job ID: [id number]
[2019-10-28] MEDS: Sodium Chloride 0.9% 1,000 ML IV SCH (00:20)
[2019-10-28 05:25] LABS: Anion Gap 13 mmol/L (10-20); BUN (Urea Nitrogen) 16 mg/dL (9.8-20.1); Calc. Creatinine Clearance 76 mL/min (70-130); Calcium 8.3 mg/dL (7.8-10.44); Carbon Dioxide 19 mmol/L (23-31); Chloride 110 mmol/L (98-107); Estimated GFR-MDRD 78; Glucose 97 mg/dL (83-110); Potassium 3.5 mmol/L (3.5-5.1); Sodium 138 mmol/L (136-145)
[2019-10-28] MEDS: Levothyroxine 150 MCG TAB PO SCH (05:27)
--- NOTE | 2019-10-28 05:36 | PDOC.FM ---
- Subjective Subjective: Ms. Frank is resting comfortably this morning. She does complain of several episodes of tachycardia overnight. On review of the tele monitor she was in RVR to the 150s a couple of times, this was noted to be with exertion such as getting up to the restroom. - Objective MAR Reviewed: Yes Vital Signs & Weight: Vital Signs (12 hours) Temp Pulse Resp BP Pulse Ox 10/28/19 03:26 98.3 F 106 H 16 103/59 L 94 L 10/27/19 22:33 98.3 F 100 18 112/57 L 98 10/27/19 19:00 98.2 F 100 Weight Weight 73.7 kg Most Recent Monitor Data Heart Rate from ECG 99 NIBP 103/74 NIBP BP-Mean 83 Respiration from ECG 21 SpO2 98 I&O: 10/26/19 10/27/19 10/28/19 06:59 06:59 06:59 Intake Total 1088.1 3254 Output Total 750 1600 Balance 338.1 1654 Result Diagrams: 10/28/19 03:58 10/28/19 03:58 Phys Exam - Physical Examination Constitutional: NAD HEENT: PERRLA, moist MMs Neck: supple, full ROM Respiratory: no wheezing, no rales, no rhonchi, clear to auscultation bilateral Cardiovascular: no rub Tachycardic, irregular rhythm, systolic murmur Gastrointestinal: soft, non-tender, no distention, positive bowel sounds Musculoskeletal: no edema, pulses present Neurological: non-focal, normal sensation, moves all 4 limbs Psychiatric: normal affect, A&O x 3 Skin: no rash, normal turgor Dx/Plan (1) Acute blood loss anemia Code(s): D62 - ACUTE POSTHEMORRHAGIC ANEMIA Status: Acute (2) GI bleed Code(s): K92.2 - GASTROINTESTINAL HEMORRHAGE, UNSPECIFIED Status: Acute (3) Afib Code(s): I48.91 - UNSPECIFIED ATRIAL FIBRILLATION Status: Chronic (4) Asthma Code(s): J45.909 - UNSPECIFIED ASTHMA, UNCOMPLICATED Status: Chronic (5) HLD (hyperlipidemia) Code(s): E78.5 - HYPERLIPIDEMIA, UNSPECIFIED Status: Chronic (6) HTN (hypertension) Code(s): I10 - ESSENTIAL (PRIMARY) HYPERTENSION Status: Chronic (7) Hypothyroidism Code(s): E03.9 - HYPOTHYROIDISM, UNSPECIFIED Status: Chronic - Plan Plan: Patient is a 74F with a PMHx of HTN, hypothyroidism, HLD, asthma, and afib on warfarin admitted for GI bleed. Acute blood loss anemia - s/p 3U pRBCs, Hgb now 8.2 - Weaned of Levophed, pressures have remained stable. - Currently NPO. GI consulted, plan for EGD this morning. - Hold patient's home warfarin, received Vit K overnight. - Holding home BP meds E coli Shiga toxin diarrhea - GI feels that this is an upper GI bleed, despite shiga toxin positive. - Will d/c Ceftriaxone and treat symptoms including giving IVF HTN - Holding home meds for hypotension Hypothyroidism - Continue home meds HLD - Hold home meds Asthma - Continue home meds Afib - In afib, holding warfarin due to GI bleed - INR this AM 1.7 DVT ppx: SCDs Code Status: Full PCP: CC: Lionel
[2019-10-28 05:40] LABS: Band 1 % (5-11); Elliptocytes SLIGHT = 2-5 cells (100X) (0-1/hpf); Eosinophils 2 % (0-10); Hemoglobin 8.2 g/dL (12.0-16.0); Hypochromia SLIGHT = 6-15 cells (100X) (0-5/hpf); Lymphocytes 18 % (21-51); MDiff Complete? YES; Mean Corpuscular HGB CONC 33.8 g/dL (32.0-36.0); Mean Corpuscular Hemoglobin 31.3 pg (27.0-31.0); Mean Corpuscular Volume 92.5 fL (78.0-98.0); Mean Platelet Volume 7.7 fL (7.4-10.4); Monocytes 13 % (0-10); Myelocyte 1 % (0-0); Neutrophil 64 % (42-75); Platelet Count 170 thou/uL (130-400); Platelet Morphology Comment Appears Adequate; RBC Distribution Width 18.1 % (11.5-14.5); Reactive Lymphocytes 1 % (0-10); Red Blood Cell (RBC) Count 2.61 mill/uL (4.20-5.40); Target Cells SLIGHT = 2-5 cells (100X) (0-1/hpf)
[2019-10-28] MEDS: Ferrous Sulfate 325 MG TAB PO SCH (08:05)
[2019-10-28] MEDS: Montelukast Sodium 10 mg Tablet PO SCH (08:05)
[2019-10-28] MEDS: Pantoprazole 40 MG VIAL IVP SCH ×2 (08:06→21:21)
[2019-10-28] MEDS: Sodium Chloride 0.9% (PF) 10 ML VIAL FS PRN (08:06)
[2019-10-28] MEDS ORDERED: Lidocaine 2% Jelly 5 ML TUBE ONE (08:59)
[2019-10-28] MEDS ORDERED: Furosemide 40 MG/4 ML VIAL ONE (10:05)
[2019-10-28] MEDS ORDERED: Furosemide 40 MG/4 ML VIAL SLOW IVP SCH (10:15)
--- NOTE | 2019-10-28 10:19 | PRG ---
DATE OF SERVICE: 10/28/2019 SUBJECTIVE: Ms. Frank came down for planned EGD this morning, but our anesthesia provider canceled the case, due to concerns about respiratory status and acute CHF. The patient is tachypneic and mildly hypoxic, does have some bibasilar crackles. This is a newer development overnight. From a GI standpoint, the patient denies any abdominal pain or nausea. She reports having had one further small bowel movement, which was dark. Hemoglobin is stable and BUN has declined. OBJECTIVE: VITAL SIGNS: Temperature 98.3, pulse 106, blood pressure 103/59, and 94% oxygen saturation on room air. GENERAL: Sitting up in stretcher, mildly tachypneic, on facemask oxygen. HEART: Regular. Tachycardia. Systolic murmur appreciated. LUNGS: Bibasilar crackles. Mild tachypnea. ABDOMEN: Soft, nontender to palpation throughout. EXTREMITIES: No peripheral edema. LABORATORY STUDIES: WBC 9.0, hemoglobin 8.2, platelets 170. Sodium 138, potassium 3.5, BUN is down to 16, creatinine 0.73. ASSESSMENT AND PLAN: 1. Melena, appears to be resolving. 2. Acute blood loss anemia, stable this morning after initial RBC transfusion. 3. Escherichia coli with Shiga toxin. From a GI standpoint, the patient is stable. Hemoglobin is stabilized and with declining BUN, I think any active GI hemorrhage is probably stopped. Esophagogastroduodenoscopy would still be worthwhile for diagnostic purposes, but I would defer to our anesthesia provider on the need for cardiorespiratory optimization. I have spoken with Dr. Gan regarding this. From my standpoint, the patient could have a diet today, but have n.p.o. after midnight for potential esophagogastroduodenoscopy tomorrow. We would continue the IV PPI in the meantime. Job ID: [id number]
[2019-10-28] MEDS ORDERED: Potassium Chloride 20 MEQ TAB PO SCH ×2 (10:30→12:00)
--- NOTE | 2019-10-28 12:45 | PRG ---
DATE OF SERVICE: 10/28/2019 SUBJECTIVE: This morning she is still short of breath. OBJECTIVE: VITAL SIGNS: Temperature 97, pulse 104, respiratory rate 18, saturations are 98% on 2 L, blood pressure 124/97. GENERAL: No chest pain. CHEST: Decreased breath sounds. Minimal wheezing. CARDIAC: Sinus tach. ABDOMEN: Soft. LABORATORY DATA: White count 9000. ASSESSMENT: Asthma, sleep apnea, gastrointestinal bleed. PLAN: 1. Continue present supportive care. I suggest getting scheduled neb treatments, Dulera schedule because of her breathing. 2. We will follow. Job ID: [id number]
[2019-10-28 16:31] LABS: Anion Gap 12 mmol/L (10-20); BUN (Urea Nitrogen) 14 mg/dL (9.8-20.1); Calc. Creatinine Clearance 72 mL/min (70-130); Calcium 8.2 mg/dL (7.8-10.44); Carbon Dioxide 18 mmol/L (23-31); Chloride 108 mmol/L (98-107); Estimated GFR-MDRD 73; Glucose 115 mg/dL (83-110); Potassium 4.2 mmol/L (3.5-5.1); Sodium 134 mmol/L (136-145)
--- NOTE | 2019-10-28 17:27 | CON ---
DATE OF CONSULTATION: HISTORY OF PRESENT ILLNESS: The patient is a 74-year-old woman with a history of mitral valve repair and aortic stenosis, who presented with a GI hemorrhage. In 2008, the patient underwent mitral valve repair. She also underwent a Maze procedure. The patient has chronic permanent atrial fibrillation and is on chronic anticoagulation therapy. The patient was in her usual state of health when she noted to have dark stool. She was admitted to the hospital and developed dyspnea this morning prior to undergoing an endoscopy. The patient denied having any chest discomfort. PAST MEDICAL HISTORY: 1. Status post mitral valve repair. 2. Aortic stenosis. 3. Permanent atrial fibrillation. 4. Hypertension. 5. Diverticulosis. 6. Asthma. PAST SURGICAL HISTORY: Hysterectomy, tonsillectomy, cholecystectomy, and thyroid surgery. SOCIAL HISTORY: Nonsmoker. FAMILY HISTORY: Positive family history of heart disease. ALLERGIES: SHE IS ALLERGIC TO DEMEROL AND AUGMENTIN. REVIEW OF SYSTEMS: Ten-point system otherwise unremarkable. PHYSICAL EXAMINATION: GENERAL: This is a pale woman, in no acute distress. VITAL SIGNS: Blood pressure 124/97. NECK: Showed no jugular venous distention. LUNGS: Have few crackles in both bases. HEART: Irregular rate and rhythm. Normal S1 and S2. 2/6 systolic murmur. ABDOMEN: Nondistended. EXTREMITIES: Show no edema. LABORATORY RESULTS: Her sodium was 134, potassium 4.2, chloride 108, bicarb 18, BUN 14, and creatinine 0.7. INR of 1.7. White blood cell count 9.0, hemoglobin 8.2, hematocrit 24.2, and platelets are 170. Her EKG revealed atrial fibrillation with ST-T wave abnormality suggestive of ischemia. IMPRESSION: 1. Gastrointestinal hemorrhage. 2. Permanent atrial fibrillation. 3. Severe aortic stenosis. 4. Mitral regurgitation. PLAN: This patient has underwent possible endoscopy. She went into pulmonary edema. The patient has severe aortic stenosis. I recommend holding off doing an endoscopy unless the patient developed recurrent bleeding. We will follow this patient with you through her hospitalization. Job ID: [id number]
--- NOTE | 2019-10-28 17:33 | RAD ---
Chest AP view INDICATION: CHF COMPARISON: October 26, 2019 FINDINGS: Lungs:Worsening perihilar edema Cardiac silhouette:Stable cardia megaly Pulmonary vasculature:Worsening pulmonary vascular congestion Pleural spaces:Tiny bilateral pleural effusions Upper abdomen:No abnormality seen. Osseous structures: No acute osseous abnormality. Additional findings:Stable left subclavian central venous catheter. Stable valvular replacement and m idline sternotomy wires. IMPRESSION: Worsening CHF
[2019-10-28] MEDS: Mometasone/Formoterol 120 PUFF INHALER INH SCH (18:22)
[2019-10-28] MEDS ORDERED: Famotidine 20 MG TAB PO SCH (21:00)
[2019-10-28] MEDS: Lactinex Tablet PO SCH (21:21)
[2019-10-28] MEDS: Simvastatin 5 MG TAB PO SCH (21:21)
[2019-10-28] MEDS: Diabetic Tussin 200 MG/10 ML UDCUP PO PRN (21:23)
[2019-10-29 05:09] LABS: Anion Gap 11 mmol/L (10-20); BUN (Urea Nitrogen) 13 mg/dL (9.8-20.1); Calc. Creatinine Clearance 74 mL/min (70-130); Calcium 8.3 mg/dL (7.8-10.44); Carbon Dioxide 22 mmol/L (23-31); Chloride 107 mmol/L (98-107); Estimated GFR-MDRD 75; Glucose 88 mg/dL (83-110); Potassium 4.1 mmol/L (3.5-5.1); Sodium 136 mmol/L (136-145)
[2019-10-29 05:12] LABS: Band 3 % (5-11); Eosinophils 1 % (0-10); Hemoglobin 8.2 g/dL (12.0-16.0); Lymphocytes 16 % (21-51); MDiff Complete? YES; Mean Corpuscular HGB CONC 33.4 g/dL (32.0-36.0); Mean Corpuscular Hemoglobin 31.2 pg (27.0-31.0); Mean Corpuscular Volume 93.5 fL (78.0-98.0); Mean Platelet Volume 7.6 fL (7.4-10.4); Monocytes 9 % (0-10); Neutrophil 71 % (42-75); Platelet Count 186 thou/uL (130-400); Platelet Morphology Comment Appears Adequate; RBC Distribution Width 18.4 % (11.5-14.5); RBC Morphology Normal; Red Blood Cell (RBC) Count 2.62 mill/uL (4.20-5.40); White Blood Cell (WBC) Count 9.9 thou/uL (4.8-10.8)
--- NOTE | 2019-10-29 05:36 | PDOC.FM ---
- Subjective Subjective: Ms. Frank is doing well this morning, she is breathing much better than she was yesterday. - Objective MAR Reviewed: Yes Vital Signs & Weight: Vital Signs (12 hours) Temp Pulse Resp BP Pulse Ox 10/29/19 04:00 97.9 F 104 H 20 105/60 92 L 10/29/19 02:24 99 20 97 10/28/19 22:26 91 16 96 10/28/19 19:27 98.5 F 90 20 116/58 L 98 10/28/19 18:20 97 20 97 Weight Weight 73.7 kg Most Recent Monitor Data Heart Rate from ECG 99 NIBP 103/74 NIBP BP-Mean 83 Respiration from ECG 21 SpO2 98 I&O: 10/27/19 10/28/19 10/29/19 06:59 06:59 06:59 Intake Total 1088.1 3254 400 Output Total 750 1600 800 Balance 338.1 1654 -400 Result Diagrams: 10/29/19 04:16 10/29/19 04:16 Phys Exam - Physical Examination Constitutional: NAD HEENT: PERRLA, moist MMs Neck: no JVD, supple Respiratory: no wheezing, no rhonchi, clear to auscultation bilateral Fine crackles at the bases bilaterally Cardiovascular: RRR, no rub Aortic stenosis murmur Gastrointestinal: soft, non-tender Musculoskeletal: no edema, pulses present Neurological: non-focal, normal sensation Psychiatric: normal affect, A&O x 3 Skin: no rash, normal turgor Dx/Plan (1) Acute blood loss anemia Code(s): D62 - ACUTE POSTHEMORRHAGIC ANEMIA Status: Acute (2) GI bleed Code(s): K92.2 - GASTROINTESTINAL HEMORRHAGE, UNSPECIFIED Status: Acute (3) Afib Code(s): I48.91 - UNSPECIFIED ATRIAL FIBRILLATION Status: Chronic (4) Asthma Code(s): J45.909 - UNSPECIFIED ASTHMA, UNCOMPLICATED Status: Chronic (5) HLD (hyperlipidemia) Code(s): E78.5 - HYPERLIPIDEMIA, UNSPECIFIED Status: Chronic (6) HTN (hypertension) Code(s): I10 - ESSENTIAL (PRIMARY) HYPERTENSION Status: Chronic (7) Hypothyroidism Code(s): E03.9 - HYPOTHYROIDISM, UNSPECIFIED Status: Chronic - Plan Plan: CHF exacerbation - patient has known history of HF, unknown type, and severe aortic stenosis and mitral valve replacement. - ECHO pending - cardiology consulted. - restarted home lasix, will monitor I/O Acute blood loss anemia - s/p 3U pRBCs, Hgb now 8.2 - Has not had melena since night before last, bleed has likely stabilized. - Cardiology consulted and recommends no endoscopy unless bleeding recurs, GI agrees. - Will await Card/GI recs for restarting anticoagulation E coli Shiga toxin diarrhea - GI feels that this is an upper GI bleed, despite shiga toxin positive. HTN - Holding home meds for hypotension Hypothyroidism - Continue home meds HLD - Hold home meds Asthma - Continue home meds Afib - In afib, holding warfarin due to GI bleed DVT ppx: SCDs Code Status: Full Dispo: Guarded, inpatient, will need to restart anticoagulation and monitor prior to d/c. PCP: CC: Lionel
[2019-10-29] MEDS: Levothyroxine 150 MCG TAB PO SCH (06:07)
[2019-10-29] MEDS: Mometasone/Formoterol 120 PUFF INHALER INH SCH ×2 (06:37→18:30)
[2019-10-29] MEDS ORDERED: Furosemide 20 MG/2 ML VIAL SLOW IVP SCH ×2 (08:00→08:21)
--- NOTE | 2019-10-29 10:05 | PRG ---
DATE OF SERVICE: 10/29/2019 SUBJECTIVE: Ms. Frank is feeling pretty well. Her last bowel movement was over 24 hours ago, was muddy black in color. She has not had any further bowel movements over the past day. There is no abdominal pain. No vomiting. She is tolerating her low-sodium diet. She says her breathing is a lot easier. Hemoglobin is stable this morning. PHYSICAL EXAMINATION: VITAL SIGNS: Temperature 97.9, pulse 113, blood pressure 108/63, 93% oxygen saturation on room air. GENERAL: No acute distress, sitting up in bed comfortably. HEART: Irregular tachycardia, loud systolic murmur. LUNGS: Bibasilar crackles. No wheezing. No respiratory distress. ABDOMEN: Soft, nontender to palpation throughout. EXTREMITIES: No peripheral edema. LABORATORY STUDIES: Hemoglobin stable at 8.2, WBC 9.9, platelets 186. Sodium 136, potassium 4.1, BUN down to 13, creatinine 0.75. ASSESSMENT AND PLAN: 1. Melena, resolved. 2. Acute blood loss anemia, stable for the past 2 days now after initial RBC transfusion. Her acute bleeding presentation still seems more consistent with upper gastrointestinal source. However, it appears that whatever this has now resolved. Dr. Sheehan has recommended that we will not pursue any endoscopy, due to her tenuous cardiorespiratory status, unless the patient were to have significant bleeding again. I would agree with this. In that case, I would recommend treating empirically for suspected peptic ulcer disease. Continue PPI every 12 hours IV while inpatient, and on discharge, transition to twice daily dosing for at least the next 2 months. I would defer to cardiology recommendations on restarting anticoagulation. 3. Escherichia coli with shiga toxin. I think this either was not a true pathogen in her case, or else has run its course. She is not having any abdominal pain or diarrhea. Job ID: [id number]
[2019-10-29] MEDS: Potassium Chloride 10 MEQ TAB PO SCH (10:21)
[2019-10-29] MEDS: Montelukast Sodium 10 mg Tablet PO SCH (10:21)
[2019-10-29] MEDS: Ferrous Sulfate 325 MG TAB PO SCH (10:21)
[2019-10-29] MEDS: Furosemide 20 MG TAB PO SCH (10:22)
[2019-10-29] MEDS: Pantoprazole 40 MG VIAL IVP SCH ×2 (10:22→21:16)
[2019-10-29] MEDS: Loratadine 10 MG TAB PO SCH (10:22)
[2019-10-29] MEDS: Fluticasone Propionate Nasal Spray 16 gm Bottle NASAL SCH (10:24)
--- NOTE | 2019-10-29 12:48 | PRG ---
DATE OF SERVICE: 10/29/2019 SUBJECTIVE: Kenzie Anaya is doing much better this morning. She is less short of breath and less cough. Less wheezing. She will be walking in the halls. She had a chest x-ray taken yesterday, which shows evidence of cardiomegaly, maybe cephalization. OBJECTIVE: VITAL SIGNS: Saturations are 93% on room air, respirations 16, temperature 97, and blood pressure 108/63. CHEST: No wheezing or crackles. CARDIAC: Normal S1 and S2. No gallops. ABDOMEN: No masses. IMPRESSION AND PLAN: Congestive heart failure by x-ray, anemia, gastrointestinal bleed, sleep apnea, and asthma. Pulmonary sims, she is much improved. Disposition as per primary care physician. Job ID: [id number]
[2019-10-29] MEDS: Simvastatin 5 MG TAB PO SCH (21:16)
[2019-10-29] MEDS: Lactinex Tablet PO SCH (21:16)
[2019-10-30 05:10] LABS: Anion Gap 13 mmol/L (10-20); BUN (Urea Nitrogen) 14 mg/dL (9.8-20.1); Calc. Creatinine Clearance 65 mL/min (70-130); Calcium 8.3 mg/dL (7.8-10.44); Carbon Dioxide 21 mmol/L (23-31); Chloride 104 mmol/L (98-107); Estimated GFR-MDRD 67; Glucose 98 mg/dL (83-110); Potassium 3.6 mmol/L (3.5-5.1); Sodium 134 mmol/L (136-145)
[2019-10-30 05:29] LABS: Eosinophils 2 % (0-10); Hypochromia SLIGHT = 6-15 cells (100X) (0-5/hpf); Lymphocytes 16 % (21-51); MDiff Complete? YES; Mean Corpuscular HGB CONC 33.4 g/dL (32.0-36.0); Mean Corpuscular Hemoglobin 31.4 pg (27.0-31.0); Mean Platelet Volume 7.4 fL (7.4-10.4); Monocytes 8 % (0-10); Neutrophil 74 % (42-75); Platelet Count 196 thou/uL (130-400); Platelet Morphology Comment Appears Adequate; RBC Distribution Width 18.4 % (11.5-14.5); Red Blood Cell (RBC) Count 2.55 mill/uL (4.20-5.40); White Blood Cell (WBC) Count 8.2 thou/uL (4.8-10.8)
--- NOTE | 2019-10-30 05:34 | PDOC.FM ---
- Subjective Subjective: Patient states her breathing is better this morning. She says she has not had a BM in a few days and feels somewhat constipated. Otherwise she is resting comfortably in bed this morning and says she overall feels better. - Objective Vital Signs & Weight: Vital Signs (12 hours) Temp Pulse Resp BP BP Pulse Ox 10/30/19 04:00 97.2 F L 97 16 105/57 L 95 10/30/19 02:26 99 18 95 10/29/19 23:59 95 10/29/19 22:11 100 16 94 L 10/29/19 20:03 97.9 F 111 H 18 101/58 L 94 L 10/29/19 18:25 101 H 16 95 Weight Weight 71.668 kg Most Recent Monitor Data Heart Rate from ECG 99 NIBP 103/74 NIBP BP-Mean 83 Respiration from ECG 21 SpO2 98 I&O: 10/28/19 10/29/19 10/30/19 06:59 06:59 06:59 Intake Total 3254 880 Output Total 1600 1050 250 Balance 1654 -170 -250 Result Diagrams: 10/30/19 04:12 10/30/19 04:12 Phys Exam - Physical Examination Constitutional: NAD HEENT: moist MMs, sclera anicteric Neck: no JVD, supple, full ROM Respiratory: no wheezing, no rales, no rhonchi, clear to auscultation bilateral Cardiovascular: RRR grade 3 systolic murmur over aortic area Gastrointestinal: soft, non-tender, no distention, positive bowel sounds Musculoskeletal: no edema, pulses present Neurological: non-focal, normal sensation, moves all 4 limbs Psychiatric: normal affect, A&O x 3 Skin: no rash, normal turgor Dx/Plan (1) Acute blood loss anemia Code(s): D62 - ACUTE POSTHEMORRHAGIC ANEMIA Status: Acute (2) GI bleed Code(s): K92.2 - GASTROINTESTINAL HEMORRHAGE, UNSPECIFIED Status: Acute Qualifiers: GI bleed type/associated pathology: melena Qualified Code(s): K92.1 - Melena (3) Afib Code(s): I48.91 - UNSPECIFIED ATRIAL FIBRILLATION Status: Chronic Qualifiers: Atrial fibrillation type: unspecified Qualified Code(s): I48.91 - Unspecified atrial fibrillation - Plan Plan: Patient is a 74 yo female with PMHx of CHF, Aortic Stenosis, Afib, & Asthma who presents with fatigue & melena is admitted for GI bleed: #CHF exacerbation - patient has known history of HF, unknown type, and severe aortic stenosis and mitral valve replacement. - ECHO pending - Cardiology consulted, appreciate recs - restarted home lasix, increased to 60 (10/29) - monitor I/O-has net output 420 mL so far past 24 hrs #Acute blood loss anemia - s/p 3U pRBCs, Hgb now 8.2 - Has not had melena since 10/28, bleed has likely stabilized. - Cardiology consulted and recommends no endoscopy unless bleeding recurs, GI agrees. - Will await Card/GI recs for restarting anticoagulation, anticipate will need to hold home Warfarin for several weeks #E coli Shiga toxin diarrhea - GI feels that this is an upper GI bleed, despite shiga toxin positive. #HTN - Holding home meds for hypotension #Hypothyroidism - Continue home meds #HLD - Hold home meds #Asthma - Continue home meds #Afib - In afib, holding warfarin due to GI bleed Diet: HH DVT ppx: SCDs Code Status: Full PCP: CC: Lionel Dispo: Stable, admitted to inpatient on telemetry unit. Awaiting ECHO results. Cardiology consulted, appreciate recs. Anticipate discharge in 24-48 hrs. Addendum - Attending - Attending Attestation Date/Time: 10/30/19 1667 I personally evaluated the patient and discussed the management with the team. I agree with the History, Examination, Assessment and Plan documented above with any addition or exceptions noted below. Await cardiology input, dispo pending.
[2019-10-30] MEDS: Levothyroxine 150 MCG TAB PO SCH (06:03)
[2019-10-30] MEDS: Mometasone/Formoterol 120 PUFF INHALER INH SCH ×2 (06:35→19:00)
[2019-10-30] MEDS ORDERED: Senokot 8.6 MG TAB PO PRN (08:33)
--- NOTE | 2019-10-30 09:09 | PRG ---
DATE OF SERVICE: 10/30/2019 SUBJECTIVE: Kenzie Frank, this morning, is doing better, less short of breath, less cough. She is still in atrial fibrillation. Cardiology still seeing the patient. OBJECTIVE: VITAL SIGNS: Saturations temperature 97, pulse 62, respiratory rate 16, blood pressure . CHEST: Minimal wheezing. CARDIAC: Normal S1 and S2. No gallops. ABDOMEN: No masses. IMPRESSION: 1. Chronic obstructive pulmonary disease, asthma, sleep apnea, stable. 2. Atrial fibrillation. PLAN: Pulmonary sims, continue PT, supportive care. Disposition as per Cardiology. Job ID: [id number]
[2019-10-30] MEDS: Potassium Chloride 10 MEQ TAB PO SCH (09:23)
[2019-10-30] MEDS: Loratadine 10 MG TAB PO SCH (09:23)
[2019-10-30] MEDS: Ferrous Sulfate 325 MG TAB PO SCH (09:23)
[2019-10-30] MEDS: Furosemide 20 MG TAB PO SCH (09:23)
[2019-10-30] MEDS: Montelukast Sodium 10 mg Tablet PO SCH (09:24)
[2019-10-30] MEDS: Fluticasone Propionate Nasal Spray 16 gm Bottle NASAL SCH (09:25)
[2019-10-30] MEDS: Pantoprazole 40 MG VIAL IVP SCH (09:25)
--- NOTE | 2019-10-30 13:50 | PRG ---
DATE OF SERVICE: 10/30/2019 SUBJECTIVE: Ms. Frank has had no bowel movement for the last few days. She has no abdominal pain or nausea. No shortness of breath acutely. OBJECTIVE: VITAL SIGNS: Temperature is 97.4, pulse 88 to 105, blood pressure 102/65. GENERAL: She is in no acute distress. Alert and oriented x3. LUNGS: Clear to auscultation bilaterally. HEART: Regular rate and rhythm. A 3/6 systolic murmur in right upper sternal border. ABDOMEN: Soft, nontender, nondistended. Bowel sounds are present. EXTREMITIES: No lower extremity edema. IMPRESSION: 1. Upper gastrointestinal bleed, presenting with melena. We are treating empirically with proton pump inhibitor for suspected peptic ulcer. Endoscopy is deferred due to cardiac risk. 2. Anemia of acute blood loss. 3. Acute diarrhea, which she presented with and has now resolved. She did have shiga toxin positive in her stool, but it is questionable whether this is a true positive. Either way, her diarrhea has resolved now. 4. Atrial fibrillation with severe aortic stenosis. Anticoagulation is held at this point. RECOMMENDATIONS: 1. Proton pump inhibitor daily. 2. Her hemoglobin is stable. We will continue to follow. We will await Cardiology's recommendations. Job ID: [id number]
[2019-10-30 17:06] VITALS: BP 114/62; TEMP 98.4
--- NOTE | 2019-11-01 01:37 | PQF ---
MI THOMAS BRANDON [id number] [id number] CLINICAL DOCUMENTATION CLARIFICATION FORM: POST DISCHARGE Addendum to original discharge summary date: ____ Late entry note date: __ DATE:11/01/19 ATTN: Miguel Angel Jacobs Please exercise your independent, professional judgment in responding to the clarification form. Clinical indicators are provided on the bottom of this form for your review Please check appropriate box(s): [ ] Hypovolemic Shock [ ] Cardiogenic Shock [ x ] Hemorrhagic Shock [ ] Shock Unspecified [ ] Other diagnosis [ ] Unable to determine In addition, please specify: Present on Admission (POA): [ x ] Yes [ ] No [ ] Unable to determine For continuity of documentation, please document condition throughout progress notes and discharge summary. Thank You. CLINICAL INDICATORS - SIGNS / SYMPTOMS / LABS Family med H&P p1 10/26 Dr Ray She was seen at Dr. Mccabe's office today and her hgb was found to be 6.3, so she was sent to the hospital for a blood transfusion. Family med H&P p1 10/26 Dr Ray Per patient she started to notice "muddy-like loose stools" Cha night and yesterday morning. She denies bright red blood per rectum. Family med H&P p1 10/26 Dr Ray Per patient she last had rectal bleeding September 2018, and at that time she was found b3 have diverticulitis and an abscess that resulted in partial colon resection. Family med H&P p3 10/26 Dr Ray Vital sign BP86/59, HR 97, RR22 Family Med PN p1 10/27 Reports diarrhea is improving and her last BM was last night PN p1 10/30 Upper GI bleed, suspected peptic ulcer RISK FACTORS Family med H&P p5 10/15 GI bleed Family med H&P p5 10/15 Acute blood loss anemia Family med H&P p6 10/15 Hypotension Family Med PN p3 10/27 E Coli Shiga Toxin Diarrhea Family med PN p3 10/29 CHF exacerbation TREATMENTS: JAN 24 IV Rocephin JAN 24 IV Protonix JAN 24 Vasopressor JAN 24 IV fluids Blood Bank 10/26 2u pPBC (This form is maintained as a part of the permanent medical record) 2014 [employer]. All Rights Reserved [email or web address] [not provided] MTDD
--- NOTE | 2019-11-01 01:40 | PQF ---
MI THOMAS BRANDON [id number] CCU-C10 [id number] CLINICAL DOCUMENTATION CLARIFICATION FORM: POST DISCHARGE Addendum to original discharge summary date: ____ Late entry note date: __ DATE: 11/01/19 ATTN: Miguel Angel Jacobs Please exercise your independent, professional judgment in responding to the clarification form. Clinical indicators are provided on the bottom of this form for your review Please check appropriate box(s): HEART FAILURE: A. TYPE: [ ] Systolic / HFrEF [ x ] Diastolic / HFpEF [ ] Combined Systolic / Diastolic B. ACUITY [ ] Acute [ ] Acute on Chronic [ ] Chronic [ ] Other diagnosis [ x ] Unable to determine In addition, please specify: Present on Admission (POA): [ ] Yes [x ] No [ ] Unable to determine For continuity of documentation, please document condition throughout progress notes and discharge summary. Thank You. CLINICAL INDICATORS - SIGNS / SYMPTOMS / LABS Family Med PN p1 10/27 She appears to volume depleted despite some b/l edema Cardio consult p1 10/28 She was admitted to hospital and develop dyspnea this morning prior undergoing an endoscopy' Family med PN p1 10/29 Yesterday develop acute overload s/p IV Lasix' ELAINE 10/28 Impression : Ejection fraction 50-55% RISKS: Cardio consult p1 10/28 - Permanent Afib Cardio consult p1 10/28 - Aortic Stenosis Family med PN p3 10/29 CHF exacerbation TREATMENTS: Cardio consult 10/28 Arslan [place] 10/28 IV Lasix Family med PN p3 10/29 Monitor I/O Ordered TTE 10/28 (This form is maintained as a part of the permanent medical record) 2014 [employer] All Rights Reserved [email or web address] [not provided] MTDD
--- NOTE | 2019-11-01 01:43 | PQF ---
MI THOMAS BRANDON [id number] CCU-C10 [id number] CLINICAL DOCUMENTATION CLARIFICATION FORM: POST DISCHARGE Addendum to original discharge summary date: ____ Late entry note date: __ DATE: 11/01/19 ATTN: Miguel Angel Jacobs Please exercise your independent, professional judgment in responding to the clarification form. Clinical indicators are provided on the bottom of this form for your review In your clinical opinion based on clinical findings below, can you please identify the etiology of Melena if due to: Please check appropriate box(s): [ ] E Coli Shiga Toxin Diarrhea [ ] Peptic Ulcer Disease [ ] Other diagnosis [ x ] Unable to determine In addition, please specify: Present on Admission (POA): [ ] Yes [ ] No [ ] Unable to determine For continuity of documentation, please document condition throughout progress notes and discharge summary. Thank You. CLINICAL INDICATORS - SIGNS / SYMPTOMS / LABS Family med H&P p1 10/26 Dr Ray She was seen at Dr. Mccabe's office today and her hgb was found to be 6.3, so she was sent to the hospital for a blood transfusion. Family med H&P p1 10/26 Dr Ray Per patient she started to notice "muddly- like loose stools" Cha night and yesterday morning. She denies bright red blood per rectum. Family med H&P p1 10/26 Dr Ray Per patient she last had rectal bleeding september 2018, and at that time she was found b3 have diverticulitis and an abscess that resulted in partial colon resection. Family med H&P p3 10/26 Dr Ray Vital sign BP86/59, HR 97, RR22 Family Med PN p1 10/27 Reports diarrhea is improving and her last BM was last night PN p1 10/30 Upper GI bleed, suspected peptic ulcer RISK FACTORS Family med H&P p5 10/15 GI bleed Family med H&P p5 10/15 Acute blood loss anemia Family med H&P p6 10/15 Hypotension Family Med PN p3 10/27 E Coli Shiga Toxin Diarrhea TREATMENTS: JAN 24 IV Rocephin JAN 24 IV Protonix JAN 24 Vasopressor JAN 24 IV fluids Blood Bank 10/26 2u pPBC (This form is maintained as a part of the permanent medical record) 2014 [employer]. All Rights Reserved Veronique [not provided] MTDD
--- NOTE | 2019-11-01 05:13 | DIS ---
DATE OF ADMISSION: 10/26/2019 DATE OF DISCHARGE: 10/30/2019 RESIDENT: Lary Gan MD ADMITTING ATTENDING: Dr. Murcia. DISCHARGE ATTENDING: Dr. Murcia. CONSULTS: Dr. Rand, Dr. Marroquin/Dr. Riddle for GI. PROCEDURES: Echocardiogram which revealed an ejection fraction of 50% to 55%, moderately enlarged right atrium, severely dilated left atrium, left ventricular size normal, severe aortic stenosis, severe tricuspid regurg. PRIMARY DIAGNOSIS: Congestive heart failure exacerbation. SECONDARY DIAGNOSES: Acute blood loss anemia, E coli Shiga toxin diarrhea, hypertension, hypothyroidism, hyperlipidemia, asthma, chronic atrial fibrillation. DISCHARGE MEDICATIONS: 1. Albuterol. 2. Ferrous sulfate 325 mg p.o. daily. 3. Flonase daily. 4. Furosemide 60 mg p.o. daily. 5. Synthroid 150 mcg p.o. daily. 6. Losartan 50 mg p.o. daily. 7. Meclizine 25 mg p.o. p.r.n. 8. Singulair 10 mg p.o. daily. 9. Simvastatin 10 mg p.o. at bedtime. 10. Metoprolol 100 mg p.o. daily. 11. Protonix 40 mg p.o. b.i.d. DISCONTINUED MEDICATIONS: None. HISTORY OF PRESENT ILLNESS AND HOSPITAL COURSE: Ms. Frank is a pleasant 74-year-old female with a history of high blood pressure, hypothyroidism, hyperlipidemia, asthma, and AFib, on the warfarin for anticoagulation, who presented for melenic stools and fatigue. She started to feel bad on the Wednesday prior to admission and was seen at her primary care office and her hemoglobin was noted to be 6.3, so she was sent to the hospital. She says that she has been having dark brown/black muddy-like stools for a couple of days. She does not take NSAIDs. She only takes Tylenol because she is on warfarin. She has a history of rectal bleeding in the past and at that time, she had diverticulitis and an abscess that resulted in a sigmoidectomy. She sees Dr. Patel as her meat and seafood clerk. She was admitted to the hospital for acute blood anemia. The bleeding was thought to be upper versus lower GI bleed. Stool study showed FOBT positive and the culture revealed Shiga toxin. However, Gastroenterology, after seeing the patient, felt the bleed was upper GI in nature. Her hemoglobin was 5.9 on arrival and she was transfused 3 units of packed red blood cells. Her blood pressure on arrival was in the 80s to 90s systolic, so she was admitted to the ICU and started on a Levophed drip for pressor support. On day 2 of admission, she was able to be weaned off Levophed and maintain pressors on her. She was held n.p.o. with plan for EGD. On the morning of the , she was scheduled for an EGD, however, her respiratory status was declining and she was presenting as an acute heart failure exacerbation and Anesthesia did not feel safe performing the procedure. Gastroenterology believed that the bleeding had stopped due to the stabilization of her hemoglobin and recommended EGD done outpatient at a later date. The patient was restarted on her home p.o. Lasix, was given IV Lasix, which resulted in significant diuresis and return of her respiratory status to baseline. On day of discharge, her echocardiogram was read and she was seen by her regular meat and seafood clerk, Dr. Patel, who recommended a ELAINE outpatient and discussing whether or not to restart anticoagulation based on those results. She was discharged with a prescription for a PPI and she is to take that for 4-8 weeks after discharge and follow up with Gastroenterology. DISPOSITION: Stable. DISCHARGE INSTRUCTIONS: 1. Location: Home. 2. Diet: Heart healthy. 3. Activity: Ad darryl. 4. Follow up with meat and seafood clerk and mill crane operator outpatient. Job ID: [id number] [facility]TDD
== END 2019-10-30 20:27 | disposition home or self-care (01) | DRG 377 ==
LOC: ERS 13:26 → CCU 19:55 → 2NO 10-27 21:56
PROVIDERS: ADMIT Emergency Medicine; ATTEND Emergency Medicine
PROC: 30233N1 Transfusion of Nonautologous Red Blood Cells into Peripheral Vein, Percutaneous Approach (ICD-10-PCS; principal; 2019-10-26)
PROC: 02HV33Z Insertion of Infusion Device into Superior Vena Cava, Percutaneous Approach (ICD-10-PCS; 2019-10-26)
PROC: 3E043XZ Introduction of Vasopressor into Central Vein, Percutaneous Approach (ICD-10-PCS; 2019-10-26)
DX: K62.5 Hemorrhage of anus and rectum (principal); I50.33 Acute on chronic diastolic (congestive) heart failure; R57.8 Other shock; D62 Acute posthemorrhagic anemia; I48.21 Permanent atrial fibrillation; A04.4 Other intestinal Escherichia coli infections; E78.5 Hyperlipidemia, unspecified; E89.0 Postprocedural hypothyroidism; E78.00 Pure hypercholesterolemia, unspecified; I08.3 Combined rheumatic disorders of mitral, aortic and tricuspid valves; J44.9 Chronic obstructive pulmonary disease, unspecified; I11.0 Hypertensive heart disease with heart failure; Z79.01 Long term (current) use of anticoagulants; Z88.1 Allergy status to other antibiotic agents; Z88.8 Allergy status to other drugs, medicaments and biological substances; Z79.899 Other long term (current) drug therapy; Z79.51 Long term (current) use of inhaled steroids; Z79.890 Hormone replacement therapy; Z90.49 Acquired absence of other specified parts of digestive tract; Z90.710 Acquired absence of both cervix and uterus
CPT/HCPCS: 36415; 36416; 36430; 36556; 71045; 71046; 74177; 80048; 80053; 82728; 82977; 83540; 83550; 83690; 83880; 84484; 85007; 85025; 85027; 85610; 85730; 86850; 86900; 86901; 87045; 87046; 87324; 87427; 87449; 93005; 93306; 94640; 96374; C9113; J0696; J1940; J3430; J3480; J7620; P9016; Q9967

== ENCOUNTER 2019-11-04 19:03 | Emergency (ER) | payer MEDICARE ==
[2019-11-04 19:48] LABS: #Basophils 0.1 thou/uL (0.0-0.2); #Monocytes 0.8 thou/uL (0.11-0.59); #Neutrophils 3.3 thou/uL (1.40-6.50); %Basophils 2.5 % (0.0-1.0); %Eosinophils 0.6 % (0.0-10.0); %Lymphocytes 19.5 % (21.0-51.0); %Monocytes 14.2 % (0.0-10.0); %Neutrophils 63.2 % (42.0-75.0); Hemoglobin 9.2 g/dL (12.0-16.0); Mean Corpuscular HGB CONC 32.9 g/dL (32.0-36.0); Mean Corpuscular Hemoglobin 31.1 pg (27.0-31.0); Mean Corpuscular Volume 94.6 fL (78.0-98.0); Mean Platelet Volume 7.1 fL (7.4-10.4); Platelet Count 281 thou/uL (130-400); RBC Distribution Width 17.5 % (11.5-14.5); Red Blood Cell (RBC) Count 2.96 mill/uL (4.20-5.40); White Blood Cell (WBC) Count 5.2 thou/uL (4.8-10.8)
[2019-11-04 20:09] LABS: ALT (SGPT) 13 U/L (8-55); AST (SGOT) 34 U/L (5-34); Albumin 3.7 g/dL (3.4-4.8); Alkaline Phosphatase 134 U/L (40-110); Anion Gap 12 mmol/L (10-20); BUN (Urea Nitrogen) 18 mg/dL (9.8-20.1); Bilirubin, Total 1.2 mg/dL (0.2-1.2); Calc. Creatinine Clearance 0 mL/min (70-130); Calcium 9.6 mg/dL (7.8-10.44); Carbon Dioxide 26 mmol/L (23-31); Chloride 102 mmol/L (98-107); Estimated GFR-MDRD 38; Glucose 94 mg/dL (83-110); Potassium 3.4 mmol/L (3.5-5.1); Protein, Total 6.7 g/dL (6.0-8.3); Sodium 137 mmol/L (136-145)
--- NOTE | 2019-11-07 15:38 | EKG ---
Test Reason : Blood Pressure : / mmHG Vent. Rate : 088 BPM Atrial Rate : 054 BPM P-R Int : 000 ms QRS Dur : 092 ms QT Int : 378 ms P-R-T Axes : 000 011 033 degrees QTc Int : 457 ms Atrial fibrillation with premature ventricular or aberrantly conducted complexes Nonspecific ST and T wave abnormality , probably digitalis effect Abnormal ECG Confirmed by MARK JULIAN DO ([id number]), acquisition editor MIGUEL ZHU ([id number]) on 11/07/2019 3:38:13 PM Referred By: Confirmed By:MARK JULIAN DO
== END 2019-11-04 23:18 | disposition home or self-care (01) ==
LOC: ERS 19:03
DX: D64.9 Anemia, unspecified (principal); E03.9 Hypothyroidism, unspecified; I10 Essential (primary) hypertension; E78.00 Pure hypercholesterolemia, unspecified; J45.909 Unspecified asthma, uncomplicated; Z79.899 Other long term (current) drug therapy; Z79.51 Long term (current) use of inhaled steroids
CPT/HCPCS: 80053; 84484; 85025; 86850; 86900; 86901; 93005

== ENCOUNTER → 2019-11-06 | Day surgery (SDC) | payer MEDICARE ==
[2019-11-03 13:11] VITALS: BMI 34.7
[~2019-11-06] MED LIST changes: -Iopamidol-370 76% 500 ML 1 ML ONE; -Mometasone/Formoterol 120 PUFF INHALER INH PRN; +PROPOFOL 20 ML ONE; +PROPOFOL 40 ML ONE
--- NOTE | 2019-11-06 15:29 | EKG ---
Test Reason : PREOP-ELAINE Blood Pressure : / mmHG Vent. Rate : 076 BPM Atrial Rate : 092 BPM P-R Int : 000 ms QRS Dur : 102 ms QT Int : 404 ms P-R-T Axes : 000 015 060 degrees QTc Int : 454 ms Atrial fibrillation with premature ventricular or aberrantly conducted complexes Otherwise normal ECG Confirmed by SHARI SMITH ([id number]) on 11/06/2019 3:29:15 PM Referred By: LUIS Confirmed By:SHARI SMITH
--- NOTE | 2019-11-09 08:13 | OP ---
DATE OF PROCEDURE: 11/06/2019 PRIMARY DOCTOR: Dr. Meme Parson. INDICATIONS: A 74-year-old woman with aortic stenosis, status post mitral valve repair. DESCRIPTION OF PROCEDURE: The patient was taken to the PACU. The patient was sedated by Anesthesiology. A transesophageal probe was placed into the distal esophagus and stomach. Echocardiographic images were obtained. The transesophageal probe was removed. FINDINGS: 1. Normal left ventricular systolic function. 2. Marked biatrial enlargement. 3. The right ventricle is dilated and hypokinetic. 4. The left ventricle is not dilated. 5. The aortic valve leaflets are thickened, heavily calcified with marked reduction in leaflet excursion. 6. Status post mitral valve repair. 7. Severe aortic stenosis. 8. Mild mitral regurgitation. 9. Severe tricuspid regurgitation. 10. Trivial aortic regurgitation. 11. Atherosclerotic debris in the descending aorta. 12. Left atrial appendage is well ligated. IMPRESSION: Status post mitral valve repair with severe aortic stenosis and tricuspid regurgitation. Job ID: [id number] [facility]
== END ==
LOC: CCL 05:36
PROVIDERS: ATTEND Internal Medicine Cardiovascular Disease
PROC: B24BZZ4 Ultrasonography of Heart with Aorta, Transesophageal (ICD-10-PCS; principal; 2019-11-06)
DX: I35.0 Nonrheumatic aortic (valve) stenosis (principal); I48.20 Chronic atrial fibrillation, unspecified; I70.0 Atherosclerosis of aorta; I34.0 Nonrheumatic mitral (valve) insufficiency; E89.0 Postprocedural hypothyroidism; I10 Essential (primary) hypertension; E78.00 Pure hypercholesterolemia, unspecified; I25.10 Atherosclerotic heart disease of native coronary artery without angina pectoris; D64.9 Anemia, unspecified; E66.9 Obesity, unspecified; Z68.34 Body mass index [BMI] 34.0-34.9, adult; Z79.899 Other long term (current) drug therapy; Z88.0 Allergy status to penicillin; Z88.5 Allergy status to narcotic agent; Z88.8 Allergy status to other drugs, medicaments and biological substances; Z90.49 Acquired absence of other specified parts of digestive tract; Z98.890 Other specified postprocedural states
CPT/HCPCS: 93005; 93010; 93312; J2704

== ENCOUNTER 2019-11-30 10:43 | Outpatient (CLI) | payer MEDICARE ==
--- NOTE | 2019-11-30 10:57 | RAD ---
XR Chest Pa Lat @ [facility] HISTORY: Dyspnea COMPARISON: 10/28/2019 FINDINGS: Changes of median sternotomy are again seen. The heart size is enlarged but stable. There i s mild prominence of the pulmonary vascularity without lobar consolidation, pneumothoraces, steven pulmonary edema or pleural effusions. There is compression of a midthoracic vertebral body. IMPRESSION: Probable mild CHF.
== END 2019-11-30 10:44 | disposition home or self-care (01) ==
LOC: RAD 10:43
PROVIDERS: ATTEND Internal Medicine Pulmonary Disease
DX: R06.00 Dyspnea, unspecified (principal)
CPT/HCPCS: 71046

== ENCOUNTER 2019-12-13 07:32 | Day surgery (SDC) | payer MEDICARE ==
[2019-12-12 08:55] VITALS: BMI 34.2
[2019-12-13] MEDS ORDERED: Lidocaine 1% PF 5 ML VIAL ONE (09:49)
[2019-12-13] MEDS ORDERED: PROPOFOL 200 MG/20 ML VIAL ONE (09:49)
--- NOTE | 2019-12-13 11:30 | OP ---
DATE OF PROCEDURE: 12/13/2019 GULLET SLITTER SURGEON: None. PROCEDURE PERFORMED: Esophagogastroduodenoscopy with biopsy. INDICATIONS: 1. Melena. 2. Acute blood loss anemia. The patient presented in 10/2019 with presentation concerning for upper GI bleeding in the context of anticoagulation, but EGD was unable to be performed due to cardiorespiratory status at that time. Melena has since resolved and hemoglobin stabilized. MEDICATIONS: See Anesthesia record. FINDINGS: After discussion of the risks, benefits, and alternatives of the procedure, informed consent was obtained and witnessed. Pre-endoscopic cardiopulmonary examination was satisfactory. Time-out was performed before sedation was achieved. Sedation was achieved with Anesthesia assistance in the endoscopy unit. A Pentax adult upper endoscope was placed into the oropharynx and passed through the cricopharyngeus under direct visualization. The esophageal mucosa appeared normal throughout with a normal-appearing Z-line. The endoscope was advanced into the stomach. Forward and retroflexed views of the entire gastric mucosa were obtained. There was no evidence of any old blood or active bleeding in the stomach. In the prepyloric area, there was a patch of gastritis with friability and submucosal ecchymosis, but no active hemorrhage. The endoscope was advanced through the pylorus and into the duodenal bulb. There was a large mass within the duodenal bulb, occupying most of the volume of the bulb and making visualization difficult. The mass appeared submucosal, in that most of the overlying mucosa appeared completely normal. However, there was a single overlying ulceration measuring about 8 mm, with a clean base, on the superior aspect of this mass. Overall, appearance was concerning for possible GI stromal tumor, versus lipoma, but with overlying ulceration. I did obtain a single biopsy of the mucosa of this mass. The endoscope was advanced beyond it, passed the duodenal sweep and into the second portion of the duodenum, which appeared normal. The upper endoscope was then completely withdrawn and the patient allowed to recover. The patient tolerated the procedure well. There were no immediate postprocedure complications. IMPRESSION: 1. Prepyloric gastritis with friability and submucosal ecchymosis. 2. 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 Biopsied the mucosa. 3. Otherwise normal esophagogastroduodenoscopy. RECOMMENDATIONS: 1. Continue twice daily proton pump inhibitor. 2. Continue to hold anticoagulation if possible. 3. We will arrange referral for upper endoscopic ultrasound for further characterization of this duodenal bulb mass. 4. Follow up pathology results. Job ID: [id number]
== END 2019-12-13 10:35 | disposition home or self-care (01) ==
LOC: SDC 07:32
PROVIDERS: ATTEND Internal Medicine
PROC: 0DB88ZX Excision of Small Intestine, Via Natural or Artificial Opening Endoscopic, Diagnostic (ICD-10-PCS; principal; 2019-12-13)
DX: D62 Acute posthemorrhagic anemia (principal); K29.71 Gastritis, unspecified, with bleeding; I11.0 Hypertensive heart disease with heart failure; I50.9 Heart failure, unspecified; E78.00 Pure hypercholesterolemia, unspecified; K21.9 Gastro-esophageal reflux disease without esophagitis; Z79.899 Other long term (current) drug therapy; Z88.0 Allergy status to penicillin; Z88.1 Allergy status to other antibiotic agents; Z88.8 Allergy status to other drugs, medicaments and biological substances
CPT/HCPCS: 88305; J2001; J2704